=== PATIENT | female | born 1940 | race Caucasian/White ===

== ENCOUNTER 2023-09-06 10:53 | Observation (INO) ==
--- NOTE | 2023-07-24 09:10 | PAT Medication Instructions ---
Medication Instructions Date of Service July 24, 2023 Home Medications amlodipine 5 mg-benazepril 20 mg capsule 1 cap PO QAM atorvastatin 20 mg tablet 20 mg PO HS ergocalciferol (vitamin D2) 1,250 mcg (50,000 unit) capsule 1,250 mcg PO MONTHLY metoprolol tartrate 50 mg tablet 50 mg PO BID multivitamin (Daily Multi-Vitamin tablet) 2 tab PO QPM oxybutynin chloride 5 mg tablet 5 mg PO TID polyethylene glycol 3350 17 gram/dose oral powder (Miralax) 17 g PO QAM propylene glycol 0.6 % eye drops (Systane Complete) 1 drp ophthalmic (eye) DAILY PRN Dry Eye(S) sennosides 8.6 mg capsule (senna) 8.6 mg PO QPM glucosamine sulf dipot chlr,msm,chond 550 mg-C 30 mg-monique 1 mg capsule (Glucosamine Chondroitin) 1 cap PO BID Continue as directed ergocalciferol (vitamin D2) 1,250 mcg (50,000 unit) capsule 1,250 mcg PO MONTHLY (just do not take on morning of surgery) STOP taking 2 weeks before surgery glucosamine sulf dipot chlr,msm,chond 550 mg-C 30 mg-monique 1 mg capsule (Glucosamine Chondroitin) 1 cap PO BID DO NOT take the morning of surgery amlodipine 5 mg-benazepril 20 mg capsule 1 cap PO QAM oxybutynin chloride 5 mg tablet 5 mg PO TID polyethylene glycol 3350 17 gram/dose oral powder (Miralax) 17 g PO QAM Take morning of surgery With a small sip of water, OTHERWISE NOTHING TO EAT OR DRINK AFTER MIDNIGHT: metoprolol tartrate 50 mg tablet 50 mg PO BID propylene glycol 0.6 % eye drops (Systane Complete) 1 drp ophthalmic (eye) DAILY PRN Dry Eye(S) (if needed) Take evening before surgery atorvastatin 20 mg tablet 20 mg PO HS metoprolol tartrate 50 mg tablet 50 mg PO BID multivitamin (Daily Multi-Vitamin tablet) 2 tab PO QPM oxybutynin chloride 5 mg tablet 5 mg PO TID propylene glycol 0.6 % eye drops (Systane Complete) 1 drp ophthalmic (eye) DAILY PRN Dry Eye(S) (if needed) sennosides 8.6 mg capsule (senna) 8.6 mg PO QPM Other Notes If you have any questions please call us at [phone] or [phone] or [phone] or [phone]
--- NOTE | 2023-07-26 09:54 | Anesthesiology Consultation ---
Date of Service July 26, 2023 Assessment & Plan (1) Encounter for pre-operative examination: EKG 08/01/2023 = NSR at 61 bpm. (Reviewed by PCP at office visit "Repeat EKG in office on 08/01/23 showed normal sinus rhythm. No change since last EKG 2011.) Patient seen by PCP 08/02/2023 = seen for preop for right total knee replacement. Revised cardiac index score of no risk factors0.4% (95% CL: 0.10.8). Repeat EKG done in office. Cleared for surgery. Patient is low medical risk for listed procedure Patient acceptable risk for surgery. Chart Review Chart Review: Acceptable Risk for Surgery (pending PCP response ) and Patient seen in Pre Admission Testing - Discussed preop EKG with Dr. Winkler- recommends PCP evaluation- please send optimization note to PCP along with preop testing (specifically EKG)- awaiting response - Due to age- patient is NOT an OPJ candidate (currently 23 hour obs) Per PAT appt on 07/26/23, no recent illness/disease exposures, illness related symptoms, or recent illness/disease positive tests. Will leave to surgeon's discretion if preop Covid testing needed Teaching & Discussion Pre-Anesthesia Teaching/Discussion Notes: Instructed NPO after midnight before surgery,except medications with 15 cc of water. Medication instructions provided according to the PAT guidelines. History Surgery Operation Date: 09/06/23 12:30 Proposed Procedures p Right Total Knee Arthroplasty - Barrera Barnett MD Height/Weight Height: 5 ft 2 in Weight: 80 kg Allergies Allergy/AdvReac Type Severity Reaction Status Date / Time amoxicillin Allergy Intermediate Rash Verified 07/23/23 14:05 aspirin AdvReac Intermediate Gastrointestinal Verified 07/23/23 14:05 Upset Medications Home Medications Medication Instructions Recorded Confirmed Last Taken amlodipine 5 mg-benazepril 20 mg 1 cap PO QAM 06/25/23 07/23/23 Unknown capsule atorvastatin 20 mg tablet 20 mg PO HS 06/25/23 07/23/23 Unknown ergocalciferol (vitamin D2) 1,250 1,250 mcg PO MONTHLY 06/25/23 07/23/23 Unknown mcg (50,000 unit) capsule metoprolol tartrate 50 mg tablet 50 mg PO BID 06/25/23 07/23/23 Unknown multivitamin (Daily Multi-Vitamin 2 tab PO QPM 06/25/23 07/23/23 Unknown tablet) oxybutynin chloride 5 mg tablet 5 mg PO TID 06/25/23 07/23/23 Unknown polyethylene glycol 3350 17 17 g PO QAM 06/25/23 07/23/23 Unknown gram/dose oral powder (Miralax) propylene glycol 0.6 % eye drops 1 drp ophthalmic (eye) DAILY PRN 06/25/23 07/23/23 Unknown (Systane Complete) Dry Eye(S) sennosides 8.6 mg capsule (senna) 8.6 mg PO QPM 06/25/23 07/23/23 Unknown glucosamine sulf dipot 1 cap PO BID 07/23/23 07/23/23 Unknown chlr,msm,chond 550 mg-C 30 mg-monique 1 mg capsule (Glucosamine Chondroitin) Past Medical History Medical History Osteoporosis On Vitamin D Urinary incontinence mild- due to dropped bladder- occ urinary leaking Osteoarthritis Constipation Hyperlipidemia Hypertension Exercise / Class Metabolic Activity II 4-5 Yardwork/Stairs/Walk up hill (no chest pain or SOB with one flight of stairs ) Past Family History Family History Other No family history of adverse response to anesthesia Past Surgical History Surgical History History of repair of rotator cuff right rcr x2 History of colonoscopy Past Anesthesia History No Hx of Anesthesia Complications and No Family Hx of Anesthesia Complications History of PONV No Hx of PONV and No Hx of Motion Sickness Social History Smoking Status: Never smoker Do You Dip or Chew Tobacco: No Hx Alcohol Use: No Hx Substance Use: No substance use type: does not use Review of Systems Patient denies chest pain, shortness of breath, dyspnea on exertion, reflux, cough, wheezing, palpitations. No hx of seizures, stroke, CO, apnea/snoring. No hx of blood clots or blood transfusions Physical Exam Vital Signs VITALS BP 160/72 (manually- patient will recheck at home and call PAT/PCP if still elevated) P 58 TEMP 98.1 SP02 97% RESP 16 Constitutional no acute distress ENMT Mouth: no TMJ clicking Thyromental Distance: < 3.5 Finger Breadths (3.0) Mallampati Class: III Missing side teeth and molars Neck + limited neck extension Respiratory normal respiratory effort; no respiratory distress Auscultation: lungs clear to auscultation bilaterally; no wheezes Cardiovascular Rate/Rhythm: regular rate and regular rhythm Heart Sounds: no murmur Vessels: no carotid bruit Musculoskeletal Spine: no pain with cervical ROM Extremities: extremities normal to inspection Psychiatric Orientation: alert Lab Results Anesthesia Preop Results Results Anesthesia Widget: WBC 8.43 K/ul (4.8-10.8) 07/26/23 Hgb 13.0 g/dl (12.0-16.0) 07/26/23 Hct 36.5 % (37.0-47.0) L 07/26/23 Plt 198 K/uL (130-400) 07/26/23 Na 139 mmol/L (136-145) 07/26/23 K 4.0 mmol/L (3.5-5.1) 07/26/23 Cl 106 mmol/L (98-107) 07/26/23 CO2 28 mmol/L (21-32) 07/26/23 BUN 15 mg/dl (6-23) 07/26/23 Creat 0.69 mg/dl (0.6-1.2) 07/26/23 Glucose Level 98 mg/dl (70-99(Fasting)) 07/26/23 PT 11.2 Seconds (9.0-12.0) 07/26/23 PTT 28 Seconds (21-31) 07/26/23 INR 1.0 (0.9-1.1) 07/26/23 Blood Type O Positive 07/26/23 Antibody Screen NEGATIVE 07/26/23 Testing Electrocardiogram Date: 07/26/23 Findings: + NSR @ (60bpm ) Possible old anteroseptal infarct Chest X-Ray Date: 07/26/23 FINDINGS: Cardiac silhouette is enlarged. Atherosclerosis of the aorta. No pneumothorax, pleural effusion or airspace consolidation. Degenerative changes of the shoulders and spine. IMPRESSION: Cardiomegaly without acute process.
--- NOTE | 2023-09-02 13:12 | History & Physical Report ---
Date of Service September 02, 2023 Assessment & Plan (1) Right knee DJD: 83-year-old female with advanced right knee DJD. She has failed conservative measures. She like to have her right knee replaced. Plan: We will take her to the operative right knee replacement. The risks Mente this procedure plan patient include but not limited to DVT PE infection neurological and vascular bleeding palm pain limb range of motion this is fairly with symptoms incomplete release of symptoms excetra. The patient understands and desires to proceed. Informed consent was obtained. Will plan on DVT prophylaxis including thigh-high teds, SCDs, aspirin twice a day. She plan to be discharged home using [facility]. History of Present Illness Chief Complaint: . Persistent, progressive right knee pain and discomfort. Primary Care Provider: Yin Morales PA-C . Patient is an 83-year-old female who presents specifically for surgical daniel tment of her right right knee. She got about 10-year history of increasing right knee pain discomfort describes gotten worse over time. She been through extensive conservative measures treated at [facility] with injections as well as oral medicines. This become less successful over time. Describes global pain. The more she is up a lot more it hurts. She limps more as the day goes on. She can get to the grocery store and that is about it before she is all plate out. She like to have her right knee replaced. Allergies Allergy/AdvReac Type Severity Reaction Status Date / Time amoxicillin Allergy Intermediate Rash Verified 07/23/23 14:05 aspirin AdvReac Intermediate Gastrointestinal Verified 07/23/23 14:05 Upset Home Medications Medication Instructions Recorded Confirmed Type amlodipine 5 mg-benazepril 20 mg 1 cap PO QAM 06/25/23 07/23/23 History capsule atorvastatin 20 mg tablet 20 mg PO HS 06/25/23 07/23/23 History ergocalciferol (vitamin D2) 1,250 1,250 mcg PO MONTHLY 06/25/23 07/23/23 History mcg (50,000 unit) capsule metoprolol tartrate 50 mg tablet 50 mg PO BID 06/25/23 07/23/23 History multivitamin (Daily Multi-Vitamin 2 tab PO QPM 06/25/23 07/23/23 History tablet) oxybutynin chloride 5 mg tablet 5 mg PO TID 06/25/23 07/23/23 History polyethylene glycol 3350 17 17 g PO QAM 06/25/23 07/23/23 History gram/dose oral powder (Miralax) propylene glycol 0.6 % eye drops 1 drp ophthalmic (eye) DAILY PRN 06/25/23 07/23/23 History (Systane Complete) Dry Eye(S) sennosides 8.6 mg capsule (senna) 8.6 mg PO QPM 06/25/23 07/23/23 History glucosamine sulf dipot 1 cap PO BID 07/23/23 07/23/23 History chlr,msm,chond 550 mg-C 30 mg-monique 1 mg capsule (Glucosamine Chondroitin) Past Med/Surg History Medical History Osteoporosis On Vitamin D Urinary incontinence mild- due to dropped bladder- occ urinary leaking Osteoarthritis Constipation Hyperlipidemia Hypertension Surgical History History of repair of rotator cuff right rcr x2 History of colonoscopy Family History Other No family history of adverse response to anesthesia Social History Smoking Status: Never smoker Second Hand Exposure: No; Do You Dip or Chew Tobacco: No; Tobacco Cessation Education Requested by Patient: No Hx Alcohol Use: No Hx Substance Use: No Preferred Language: Cymro Communication Ability: Effective Traffic Engineering Director Required: No Beliefs That Will Affect Care: None Current Living Situation: Spouse Other Information That Helps Us Care for You: No Feels Safe at Home: Yes Safety Concerns: Feels Safe At This Time Assistive Devices: Glasses Review of Systems All systems reviewed & are unremarkable except as noted in HPI & below. Physical Exam . Physical examination was a pleasant middle-age female but looks in pretty good health. Examination of the right knee reveals patient ambulates independently. Good varus alignment to her knee. She is tender with medial joint line. Range of motion 5-1 15. No pain with hip motion. Negative straight leg raise. She is neurologically intact. Constitutional WD/WN, vitals as above Neck trachea midline, no thyromegaly Respiratory normal respiratory effort, lungs clear to auscultation Cardiovascular RRR, no murmur, no edema Gastrointestinal (Abdomen) normal bowel sounds, soft, nontender, no hepatosplenomegaly Results & Data Results & Data Laboratory Results . Diagnostic Findings . X-rays of the right knee reviewed. Shows advanced right knee DJD. She is got extensive tricompartment disease most severe in the medial side. She has subchondral sclerosis. She has similar but less severe disease in the left knee. PG Care Time/CCT Total # of Minutes Spent Total Time Spent with Patient: Total time spent is greater than 50% in coordination of care (as documented) at patient's floor/unit and/or counseling patient: Coding Level of Care Code None Diagnoses Right knee DJD M17.11
[~2023-09-06 10:53] MED LIST: ACETAMINOPHEN 500 MG TAB PO SCH; BUPIVACAINE 0.25% PF 30 ML VIAL ONE; BUPIVACAINE 0.5 % 5 MG/1 ML PF 10ML VIAL ONE; CeleBREX 200 MG CAP PO SCH; FAMOTIDINE 20 MG TAB PO SCH; LR 500ML BOLUS, THEN 15ML/HR IV SCH; LR 60ML/HR IV SCH; METOCLOPRAMIDE HCL 10 MG TABLET PO SCH; ROPIV 0.5% 246mg, Ketorolac 30mg, EPINEPHrine 0.5mg in NSS INFIL SCH; TRANEXAMIC ACID 1,000 MG **IV Intra-op IV SCH; dexAMETHasone**PF** 10 MG/ML VIAL IV SCH
[2023-09-06] MEDS ORDERED: PROPOFOL IV EMULSION 10 MG/ML 20 ML VIAL IV ONE ×3 (11:15→14:10)
[2023-09-06] MEDS ORDERED: ONDANSETRON INJ 2 MG/ML 2 ML VIAL ONE (11:15)
[2023-09-06] MEDS ORDERED: MIDAZOLAM HCL 1 MG/ML 2ML VIAL ONE (11:15)
[2023-09-06] MEDS ORDERED: ceFAZolin 2,000 MG/15 ML IV PUSH IV ONE (12:28)
[2023-09-06] MEDS ORDERED: Nursing to Pharmacy Communication SCH (12:30)
--- NOTE | 2023-09-06 12:31 | History & Physical Bridge Note ---
Date of Service September 06, 2023 History & Physical Bridge Note I have examined the patient, reviewed the History & Physical and in the interval since the performance of the History & Physical I have noted the following changes of clinical significance: no changes noted
[2023-09-06] MEDS ORDERED: ORTHO JOINT ANESTHETIC ONE (12:34)
[2023-09-06] MEDS ORDERED: ceFAZolin 2000MG 2,000 MG/15 ML SYR IV SCH (12:45)
[2023-09-06] MEDS ORDERED: fentaNYL citrate PF 100 MCG/2 ML VIAL ONE (13:21)
[2023-09-06] MEDS ORDERED: GLYCOPYRROLATE 0.2 MG/ML VIAL ONE (13:29)
--- NOTE | 2023-09-06 14:46 | Operative Report ---
PG Post Operative Report Pre & Post Diagnosis Operation Date: 09/06/23 12:30 Pre-Op Diagnosis: Right Knee Degenerative Joint Disease Post-Op Diagnosis: Right Knee Degenerative Joint Disease I identified the patient and participated in the time-out.: Yes Procedure Operation Date: 09/06/23 12:30 Actual Procedures p Right Total Knee Arthroplasty(Right) - Barrera Barnett MD Surgeon Barrera Barnett MD Metal Organ Pipe Maker Camilo Warren PA-C Estimated Blood Loss 50 Findings Consistent with Post-Op Diagnosis Operative findings were advanced right knee DJD. She had extensive grade 4 [id number] disease in all 3 compartments most severe medially. Osteophytes in all 3 compartments. Moderate-sized joint effusion. Specimens Right knee sent for pathology. Anesthesia Type Spinal MAC Complications none Disposition Accompanied Patient To Recovery: No Indications Patient is an 83-year-old female is had a several day history of increasing bilateral knee pain discomfort right side greater than left. She has been through extensive extensive conservative care which became less successful over time. X-rays show advanced right knee arthritis. She elected proceed with total knee arthroplasty. Description of Procedure Operative implants consist of: 1 Biomet Vanguard size 65 right posterior stabilized femoral component. 2. Biomet size 63 tibial tray. 3. 10 mm post stabilized polyethylene insert. 4. 31 x 8 all poly patella. The patient was taken the operating, identified, placed on the operating table in the supine position but all contact areas were appropriately padded. IV antibiotics 5 by anesthesia team. Spinal anesthetic and abductor canal block had been provided in the holding area. A Merlos catheter was placed in sterile fashion. Right thigh tent was then placed in the right lower extremities then prepped and draped in usual sterile fashion. Right leg was elevated exsanguinated with use of an Esmarch and a turn was placed at 300 mmHg. An anterior approach to the right knee was then performed to longitudinal incision centered over the patella. Sharp dissection was carried through subcutaneous tissue down the extensor mechanism. A medial patellar patellar arthrotomy was then performed. Subperiosteal dissection was carried out medially. The fat pad was dissected from Neath patella tendon. Lateral patellofemoral ligament was released. Patella subluxated laterally and the knee was flexed. The osteophytes taken off distal femur. The ACL and PCL were then released and the distal femur and the tibia subluxated anteriorly. The external tibial alignment jig was then placed the interface the tibia and adjusted 14 mm medially. Proximal tibial cut was made removed millimeters lower 2 from the medial side. Some osteophytes taken off medially. The tibia sized to a size 63. Attention drawn the femur. The distal femur stem with a sharp drill. The intramedullary canal was suction. A right 5 degree valgus cutting guide was placed. This femoral cutting block was then placed. This femoral cut was made take an additional 3 mm of bone off distal femur. The femur was then sized to a size 65. The AP cutting block was pinned parallel to the epicondylar axis which was 3 degrees of external rotation. The anterior cut, anterior chamfer, posterior cut, posterior chamfer cuts were made. The box cutting guide was placed in a just slight lateral box cut was made. The knee was flexed. The remnants of the medial and lateral menisci were excised. The osteophytes taken off the posterior aspect the femur. Trial femoral component was placed. The tibial tray was pinned Janice external rotation and the drill and stem punch used to create defect in proximal tibia for the tibial tray. Knee was then trialed and the 10 mm insert fit most appropriately. Attention drawn the patella. The patella was cleaned of all soft tissue. Patella thickness measured 20 mm in thickness was cut down to 13. Was sized to a size 31 patella. The lug holes were drilled for 31 patella. The lateral osteophytes removed. Patella button was placed. Knee was taken through range of motion patella tracked nicely with no thumbs test. Attention drawn to place the permanent components. Nupathe all trial components removed. Bone plug was placed into this femur limit blood loss. Double batch Palacos G cement was mixed. Biomet Vanguard size 65 right Po stabilized femoral component, size 63 tibial tray, a 10 mm pro stabilized polyethylene insert, 31 x 8 all poly patella then cemented in place. Knee was brought out into full extension till cement hardened. Final cement check was then performed. The pericapsular tissues were injected with total 100 cc of combination 50 cc of ropivacaine with epinephrine, 30 mg of Toradol, and 50 cc of normal saline. The tourniquet was then let down for final tourniquet time 51 minutes PE. Hemostasis assured with electrocautery. Extensor Meclomen closed with combination 1 PDS suture #1 Vicryl suture in [id number] fashion. Extensor Meclomen checked to be intact. Subcutaneous tissues then closed with 2 Dexon suture in buried interrupted fashion skin was closed skin fartun. Leg was then cleaned and dried and a sterile dressing with Xeroform, 4 fours, sterile cast padding, Mannie bandage were applied. Patient then transferred to the recovery in stable condition. Patient tolerated procedure well and there were no complications. Camilo Warren, my physician personalized living assistant, was present for the entire procedure. His assistance was essential and required for appropriate patient positioning, prepping and draping, surgical exposure, performing the technical details of the operation, placement the implants, closure of the wound, and placement of the sterile bandage. I attest to the content of the Intraoperative Record and any orders documented therein. Any exceptions are noted below.
--- NOTE | 2023-09-06 15:02 | XRay Report ---
XR knee RT 1 or 2V routine CLINICAL HISTORY: Surgical Post Op TECHNIQUE: 2 views of the right knee were obtained. Comparison: Comparison is made to knee radiographs 09/26/2022 FINDINGS: Patient is status post total knee arthroplasty with expected postsurgical changes including soft tiss ue swelling and subcutaneous emphysema. No periarticular lucency or hardware fracture is seen. IMPRESSION: Expected postoperative appearance status post placement of total knee arthroplasty. ACT 112: Negative or not required by law. Electronically signed by: Suresh Pleitez M.D. 09/06/2023 3:01 PM
--- NOTE | 2023-09-06 15:32 | Anesthesiology Progress Note ---
Date of Service September 06, 2023 Anesthesia Post Procedure Vital Signs Vital Signs: Temp Pulse Pulse Resp BP BP Pulse Ox 09/06/23 15:15 78 18 159/62 H 94 09/06/23 15:05 85 12 172/73 H 94 09/06/23 14:55 85 16 164/64 H 95 09/06/23 14:46 36.5 C 87 21 147/61 H 96 09/06/23 12:14 67 18 216/101 H 97 09/06/23 11:49 70 18 247/96 H 96 09/06/23 11:30 36.9 C 72 18 225/114 H 98 O2 Del Method 09/06/23 15:15 Room Air 09/06/23 15:05 Room Air 09/06/23 14:55 Room Air 09/06/23 14:46 Room Air 09/06/23 12:14 Room Air 09/06/23 11:49 Room Air 09/06/23 11:30 Room Air Transfer of Care Handoff Completed per policy Notes Mental Status: alert / awake / arousable and participated in evaluation Nausea / Vomiting: adequately controlled Pain: adequately controlled Airway Patency, RR, SpO2: stable & adequate BP & HR: stable & adequate Hydration State: stable & adequate Neuraxial Anesthesia: was administered and sensory block is resolving Anesthetic Complications: no major complications apparent and Pt Satisfied with anesthetic care
--- OUTSIDE RECORDS SUMMARY | 2023-09-06 16:15 | External Medical Summary | Summary of Care ---
Author Name Unknown Organization [facility] [address] [facility] [address] Phone [phone] Care Team Providers Care Digital Media Coordinator Name Role Phone Yin Morales PA-C Primary Care Provider Reason for Visit * Reason Onset Date Comments Precert In Process 06/01/2023 Prolia applyi vahe for assistance Encounter Details Date Type Department Care Team (Late st Contact Info) Description 06/01/2023 Telephone Rheumatology [facility] [address] [place], [place] [address] [place] [address] Pedro Garnica MD [address] [place], [place] [address] [address] Precert In Process (Prolia applying for as... Allergies Active Allergy Reactions Criticality Noted Date Comments Amoxicillin 01/13/2005 Rash Salicylates 07/29/2010 Stomach upset Ciprofloxacin Other (Please comment) 05/14/2017 Dizziness Metronidazole Other (Please comment) 05/14/2017 Dizziness documented as of this encounter (statuses as of 09/05/2023) Medications Medication Sig Dispensed Refills Start Date End Date Status CENTRUM SILVER PO TABS one daily 0 Active GLUCOSAMINE 500 MG PO TABS one daily 0 Active Propylene Glycol 0.6 % Ophthalmic Solution Instill 2 Drops into eye. 0 Active Metoprolol Tartrate 50 MG Oral Tablet (Lopressor)Indicat ions:Essential hypertension with goal blood pressure less than 140/90 TAKE 1 TABLET BY MOUTH TWICE DAILY 180 Tablet 3 11/28/2022 Active Polyethylene Glycol 3350 17 GM/SCOOP Oral Powder (MiraLax) Take 17 g by mouth in the morning. 0 Active Senna 8.6 MG Oral Capsule Take by mouth. 0 Active Vitamin D (Ergocalciferol) 1.25 MG (48795 UT) Oral Capsule (Drisdol)Indicatio ns:Vitamin D deficiency TAKE ONE CAPSULE BY MOUTH EVERY 4 WEEKS 3 Capsule 3 05/02/2023 Active Atorvastatin Calcium 20 MG Oral Tablet (Lipitor)Indicatio ns:Dyslipidemia Take 1 Tablet by mouth every night at bedtime. 90 Tablet 1 05/08/2023 Active amLODIPine Besy-Benazepril HCl 5-20 MG Oral Capsule (Lotrel)Indication s:Essential hypertension with goal blood pressure less than 140/90 TAKE ONE CAPSULE BY MOUTH ONCE DAILY 90 Capsule 3 06/04/2022 3 Discontinued Oxybutynin Chloride 5 MG Oral Tablet (Ditropan)Indicati ons:Urge incontinence TAKE 1 TABLET BY MOUTH 3 TIMES DAILY (MORNING, NOON AND BEDTIME) 270 Tablet 2 10/09/2022 3 Discontinued documented as of this encounter (statuses as of 09/05/2023) Active Problems Problem Noted Date Diagnosed Date Primary osteoarthritis of right knee 03/29/2023 Cyst of left ovary 03/29/2023 Age-related osteoporosis wit hout current pathological fracture 11/28/2022 Ulcerative colitis without complications 018 Essential hypertension with goal blood pressure less than 140/90 03/20/2016 Dyslipidemia, goal LDL below 130 03/20/2016 Vitamin D deficiency 10/31/2010 Urge incontinence 03/04/2007 ADVANCE DIRECTIVE INFORMATION 08/16/2005 Overview: received a booklet at a prior appt. documented as of this encounter (statuses as of 09/05/2023) Resolved Problems Problem Noted Date Diagnosed Date Resolved Date Ovarian cyst 02/16/2009 03/26/2017 HTN, goal below 140/90 08/16/200503/20 Osteoporosis 05/17/2005 09/23/2019 Menopause 01/13/2005 08/30/2018 Overview: age 53 Dyslipidemia, goal to be determined 01/13/2005 03/20/2016 NO KNOWN PROBLEMS 05/14/2002 01/13/2005 documented as of this encounter (statuses as of 09/05/2023) Immunizations Name Administration Dates Next Due COVID-19 mRNA, LNP-s, No Pre serve, 2-Dose Series (Moderna) 11/15/2020,10/15/2020 COVID-19, mRNA, LNP-s, PF, B ooster, 100mcg/0.5mg (Moderna) 10/31/2021 Covid-19, Mrna, Lnp-s, Pf, B ivalent, 30 Mcg, IM, 12 yrs and above (Pfizer) 06/09/2022 PPD 05/03/1998 Pneumococcal Conjugate Vacc, 13 Valent (Prevnar) 03/20/2016 Pneumococcal Polysaccharide PPV23 (Pneumovax) 02/19/2006 Season Influenza, Quad, PF, Adjuvanted, 65+ Yrs, IM (FLUAD) 06/03/2020 Seasonal Influenza, PF, 6 M & above, IM , (FluLaval or Fluzone) 06/27/2018,05/14/2017 Seasonal Influenza, Quadriva lent Hd (Fluzone Hd) 04/23/2023,05/23/2022,05/31/2021 Seasonal Influenza, Quadriva lent, No Preserve, IM 05/23/2016,05/29/2015 Seasonal Influenza, Split, I IV3, With Preserve, Inj 05/16/2014,04/26/2013,05/01/2012,05/03,05/03/2010,04/22/2010,06/15/2008 ,05/24/2007,05/21/2006 Seasonal Influenza, Trivalen t, Adjuvanted, 65+ yrs 04/30/2019 TD - Tetanus/Diptheria (ADULT) 03/09/2008 TDAP (age 11 and older)(Adacel) 02/25/2018 Varicella Zoster Vaccine (Adult) 03/09/2010 Zoster Vaccine Recombinant (Shingrix) 01/16/2020 ,10/01/2019 documented as of this encounter Social History Tobacco Use Types Packs/Day Years Used Date Smoking Tobacco: Never Smokeless Tobacco: Never Alcohol Use Standard Drinks/Week Comments Yes 0 (1 standard drink = 0.6 oz pur e alcohol) occasionally PHQ-2 Answer Date Recorded PHQ Adult Total Score 0 09/24/2020 Hunger Vital Sign Answer Date Recorded Worried About Running Out of Food in the Last Ye ar Never true 02/26/2019 Ran Out of Food in the Last Year Never true 02/26/2019 Sex and Gender Information Value Date Recorded Sex Assigned at Female 02/26/2019 1:46 PM EDT Gender Identity Female 02/26/2019 1:46 PM EDT Sexual Orientation Straight 02/26/2019 1: 46 PM EDT Job Start Date Occupation Industry Not on file Not on file Not on file documented as of this encounter Miscellaneous Notes * Telephone Encounter - Yolis Sidhu OSA - 09/05/2023 4:08 PM EST Yes, she has been approved until 01/18/2024 * Telephone Encounter - Mary Aparicio LPN - 09/05/2023 3:41 PM EST Pt is calling to schedule, has she been approved for FA? * Telephone Encounter - Da Cho LPN - 08/30/2023 11:33 AM EST Left message on pt daughters phone to have pt call regarding Prolia FA * Telephone Encounter - Da Cho LPN - 08/09/2023 12:58 PM EST Message left on pt phone requesting info on FA for Prolia * Telephone Encounter - Mary Aparicio LPN - 07/09/2023 2:25 PM EST Has pt been approved for FA? * Telephone Encounter - Nancy Aparicio LPN - 06/08/2023 1:15 PM EDT Drug name: PROLIA [facility] code(s): J0897 AUTH #: [id number] Valid auth start date: 06/05/2023 Valid auth end date: 08/12/2099 Location: [facility] # of Visits: 99 Billing Units Approved: LIFETIME Diagnosis Code(s): M81.0 Contacted patient: YES, APPLYING FOR FINANCIAL ASSISTANCE * Telephone Encounter - Lily Alejandre OSA - 06/05/2023 3:59 PM EDT Prior Auth (EOC) ID: [id number] Drug/Service Name: PROLIA 60 MG/ML SYRINGE Patient: CAPRI HERRERA Date Requested: 06/05/2023 3:54:27 PM MemberID: [id number] : 1940 submitted authorization request please see referral entry communications for all future updates * Telephone Encounter - Mary Aparicio LPN - 06/04/2023 3:01 PM EDT Please auth, thanks * Telephone Encounter - Pedro Garnica MD - 06/01/2023 11:54 AM EDT Can be look into coverage for Prolia for osteoporosis. She had been intolerant to Fosamax. Labs aregood for Prolia documented in this encounter Plan of Treatment Upcoming Encounters Date Type Department Care Team ([place] [facility] Contact Info) Description 10/10/2023 4:00 PM EST Office Visit [address] [place] [phone] Moustapha Stevens PA-C [address] [place] [address] 11/26/2023 2:00 PM EDT Office Visit [facility] [address] [place] [address] Yin Morales PA-C [address] [place] [address] 12/14/2023 11:45 AM EDT Appointment OR [facility], Operating Room, [facility] 1st Floor [address] [place] [address] Magda Claudio, DO [address] [place] [address] 12/17/2023 3:00 PM EDT Office Visit Rheumatology [place] [phone] [place] [address] Morgan Gresham CRNP [address] [place] [address] Scheduled Procedures Name Priority Associated Diagnoses Date/Ti me COLONOSCOPY FLEXIBLE PROXIMAL DIAGNOSTIC Recall Colon cancer screening Health Maintenance Due Date Last Done Comments Albumin/Creatinine Ratio 1959 Depression Screening 09/24/2021 09/24/2020 COLONOSCOPY-EVERY 5 YRS AGES 18-100 07/03/2022 07/03/2017, 07/03/2017, 12/31/2006 COVID-19 Vaccine (2022- season) 2023 06/09/2022, 10/31/2021, 11/15/2020, Additional history exists DXA Scan 01/21/2024 01/20/2022, 01/12, 03/13/2014, Additional history exists GFR 07/26/2024 07/26/2023, 03/13, 02/22/2023, Additional history exists DTaP,Tdap,and Td Vaccines (2 - Td or Tdap) 02/26/2028 02/25/2018, 03/09/2008 Pneumococcal Vaccine: 65+ Years Completed 03/20/2016, 02/19/2006 Zoster Vaccines Completed 01/16/2020, 09/13, 03/09/2010 VITAMIN D LEVEL ONCE IN A LIFETIME-USE SMARTSET# [id number] Completed 03/22/2023, 09/21/2021, 03/17/2021, Additional history exists Influenza Vaccine (FLU shot) Completed 06/2023, 05/23/2022, 05/31/2021, Additional history exists GARDASIL-HPV IMMUNIZATION SERIES Aged Out No longer eligible based on patient's age to complete this topic Hepatitis B Aged Out No longer eligi ble based on patient's age to complete this topic MENINGOCOCCAL (MENACTRA/MENVEO) Aged Out No longer eligible based on patient's age to complete this topic documented as of this encounter Medical Devices Not on filedocumented as of this encounter Care Teams Digital Media Coordinator Relationship Specialty Start Date End Date Yin Morales PA-C [address] [place], [place] [address] [address] PCP - General Physician Journal Box Inspector 07/11/22 documented as of this encounter
--- OUTSIDE RECORDS SUMMARY | 2023-09-06 16:15 | External Medical Summary | Summary of Care ---
Author Name Unknown Organization [facility] Address [address] [facility] [address] Phone [phone] Care Team Providers Care Track Production Engineer Name Role Phone Yin Morales PA-C Primary Care Provider Reason for Visit * Reason Onset Date Comments Precert In Process 06/01/2023 Prolia applyi vahe for assistance Encounter Details Date Type Department Care Team (Late st Contact Info) Description 06/01/2023 Telephone Rheumatology [facility] [address] [place], [place] [address] [place] [address] Pedro Garnica MD [address] [place], [place] [address] [address] Precert In Process (Prolia applying for [...] 0 Active Vitamin D (Ergocalciferol) 1.25 MG (96031 UT) Oral Capsule (Drisdol)Indicatio ns:Vitamin D deficiency [...] encounter Miscellaneous Notes * Telephone Encounter - Mary Aparicio LPN [...] 06/08/2023 1:15 PM EDT Drug name: PROLIA [facility] code(s): J0897 AUTH #: [id number] Valid auth start date: 06/05/2023 Valid auth end date: 08/12/2099 Location: [facility] # of Visits: 99 Billing Units Approved: LIFETIME Diagnosis Code(s): M81.0 Contacted patient: YES, APPLYING FOR FINANCIAL ASSISTANCE * Telephone Encounter - Lily Alejandre OSA - 06/05/2023 3:59 PM EDT Prior Auth ([facility]) ID: [id number] Drug/Service Name: PROLIA 60 MG/ML SYRINGE Patient: CAPRI HERRERA Date Requested: 06/05/2023 3:54:27 PM MemberID: [id number] : 1940 submitted authorization request please see [...] Upcoming Encounters Date Type Department Care Team ([facility] st Contact Info) Description 10/10/2023 4:00 PM EST Office Visit Dermatology [address] [phone] Moustapha Stevens PA-C [address] [place], [place] [address] [address] 11/26/2023 2:00 PM EDT Office Visit Family Practice [address] [phone] Yin Morales PA-C [address] [place] [address] 12/14/2023 11:45 AM EDT Appointment OR [facility], Operating Room, [facility] 1st Floor [address] [place] [address] Magda Claudio, 10 [place] [address] 12/17/2023 3:00 PM EDT Office Visit Rheumatology [facility] [address] [email or web address] [place] [address] Morgan Gresham CRNP [address] [employer] [place] [address] Scheduled Procedures Name Priority Associated Diagnoses Date/Ti [...] D LEVEL ONCE IN A LIFETIME-USE SMARTSET# [id number] Completed 03/22/2023, 09/21/2021, 03/17/2021, Additional history exists [...] filedocumented as of this encounter Care Teams Track Production Engineer Relationship Specialty Start Date End Date Yin Morales PA-C [address] [place] [phone] PCP - General Physician Adult Basic Education Manager 07/11/22 documented as of this encounter
--- OUTSIDE RECORDS SUMMARY | 2023-09-06 16:15 | External Medical Summary | Summary of Care ---
Author Name Unknown Organization [facility] Address [address] [facility] [address] Phone [phone] Care Team Providers Care Clinical Dietetic Technician Name Role Phone Yin Morales PA-C Primary Care Provider Reason for Visit * Reason Onset Date Comments Precert In Process 06/01/2023 Prolia applyi vahe for assistance Encounter Details Date Type Department Care Team (Late st Contact Info) Description 06/01/2023 Telephone Rheumatology [facility] [address] [place], [place] [address] [place] [address] Pedro Garnica MD [address] [place], [place] [address] [address] Precert In Process (Prolia applying for as... Allergies Active Allergy Reactions Criticality Noted Date Comments Amoxicillin 01/13/2005 Rash Salicylates 07/29/2010 Stomach upset Ciprofloxacin Other (Please comment) 05/14/2017 Dizziness Metronidazole Other (Please comment) 05/14/2017 Dizziness documented as of this encounter (statuses as of 08/31/2023) Medications Medication Sig Dispensed Refills Start Date [...] 0 Active Vitamin D (Ergocalciferol) 1.25 MG (64529 UT) Oral Capsule (Drisdol)Indicatio ns:Vitamin D deficiency [...] as of this encounter (statuses as of 08/31/2023) Active Problems Problem Noted Date Diagnosed Date [...] as of this encounter (statuses as of 08/31/2023) Resolved Problems Problem Noted Date Diagnosed Date Resolved Date Ovarian cyst 02/16/2009 03/26/2017 HTN, goal below 140/90 08/16/200503/20 Osteoporosis 05/17/2005 09/23/2019 Menopause 01/13/2005 08/30/2018 Overview: age 53 Dyslipidemia, goal to be determined 01/13/2005 03/20/2016 NO KNOWN PROBLEMS 05/14/2002 01/13/2005 documented as of this encounter (statuses as of 08/31/2023) Immunizations Name Administration Dates Next Due COVID-19 mRNA, LNP-s, No Pre serve, 2-Dose Series (Moderna) 11/15/2020,10/15/2020 COVID-19, mRNA, LNP-s, PF, B ooster, 100mcg/0.5mg (Moderna) 10/31/2021 Covid-19, Mrna, Lnp-s, Pf, B ivalent, 30 Mcg, IM, 12 yrs and above (Pfizer) 06/09/2022 Pneumococcal Conjugate Vacc, 13 Valent (Prevnar) 03/20/2016 [...] encounter Miscellaneous Notes * Telephone Encounter - Da Cho LPN [...] name: PROLIA HCPCS code(s): J0897 AUTH #: [id number] Valid auth start date: 06/05/2023 Valid auth end date: 08/12/2099 Location: [facility] # of Visits: 99 Billing Units Approved: LIFETIME Diagnosis Code(s): M81.0 Contacted patient: YES, APPLYING FOR FINANCIAL ASSISTANCE * Telephone Encounter - Lily Alejandre OSA - 06/05/2023 3:59 PM EDT Prior Auth (EOC) ID: [id number] Drug/Service Name: PROLIA 60 MG/ML SYRINGE Patient: CAPRI HERRERA Date Requested: 06/05/2023 3:54:27 PM MemberID: [id number] : 1940 submitted authorization request please see [...] Upcoming Encounters Date Type Department Care Team ([facility] Contact Info) Description 10/10/2023 4:00 PM EST Office Visit Dermatology [address] [phone] Moustapha Stevens PA-C [address] [place] [address] 11/26/2023 2:00 PM EDT Office Visit Family Practice [address] [phone] Yin Morales PA-C [address] [place] [address] 12/17/2023 3:00 PM EDT Office Visit [address]umatology [address] [address] Morgan Gresham CRNP [address] [employer] [place] [address] Scheduled Procedures Name Priority Associated Diagnoses Date/Ti me COLONOSCOPY FLEXIBLE PROXIMAL DIAGNOSTIC Recall Colon cancer screening Health Maintenance Due Date Last Done Comments Albumin/Creatinine Ratio 1959 Depression Screening 09/24/2021 09/24/2020 COLONOSCOPY-EVERY 5 YRS AGES 18-100 07/03/2022 07/03/2017, 07/03/2017, 12/31/2006 COVID-19 Vaccine (2022- season) 2023 06/09/2022, 10/31/2021, 11/15/2020, Additional history exists DXA Scan 01/21/2024 01/20/2022, 01/12, 03/13/2014, Additional history exists GFR 03/22/2024 03/22/2023, 02/10, 05/16/2022, Additional history exists DTaP,Tdap,and Td Vaccines (2 - Td or Tdap) 02/26/2028 02/25/2018, 03/09/2008 Pneumococcal Vaccine: 65+ Years Completed 03/20/2016, 02/19/2006 Zoster Vaccines Completed 01/16/2020, 09/13, 03/09/2010 VITAMIN D LEVEL ONCE IN A LIFETIME-USE SMARTSET# [id number] Completed 03/22/2023, 09/21/2021, 03/17/2021, Additional history exists [...] filedocumented as of this encounter Care Teams Clinical Dietetic Technician Relationship Specialty Start Date End Date Yin Morales PA-C [address] [place], [place] [address] [address] PCP - General Physician Security And Privacy Consultant 07/11/22 documented as of this encounter
--- OUTSIDE RECORDS SUMMARY | 2023-09-06 16:15 | External Medical Summary | Summary of Care ---
Author Name Unknown Organization [facility] Address [address] [place] [address] Phone [phone] Care Team Providers Care Closing Specialist Name Role Phone Yin Morales PA-C Primary Care Provider Encounter Details Date Type Department Care Team ([facility] Contact Info) Description 09/04/2023 Orders Only Family [facility] [address] [place] [phone] Yin Morales PA-C [address] [place] [address] Allergies Active Allergy Reactions Criticality Noted Date Comments Amoxicillin 01/13/2005 Rash Salicylates 07/29/2010 Stomach upset Ciprofloxacin Other (Please comment) 05/14/2017 Dizziness Metronidazole Other (Please comment) 05/14/2017 Dizziness documented as of this encounter (statuses as of 09/04/2023) Medications Medication Sig Dispensed Refills Start Date End Date Status CENTRUM SILVER PO TABS one daily 0 Active GLUCOSAMINE 500 MG PO TABS one daily 0 Active Propylene Glycol 0.6 % Ophthalmic Solution Instill 2 Drops into eye. 0 Active Metoprolol Tartrate 50 MG Oral Tablet (Lopressor)Indication s:Essential hypertension with goal blood pressure less than 140/90 TAKE 1 TABLET BY MOUTH TWICE DAILY 180 Tablet 3 11/28/2022 Active Polyethylene Glycol 3350 17 GM/SCOOP Oral Powder (MiraLax) Take 17 g by mouth in the morning. 0 Active Senna 8.6 MG Oral Capsule Take by mouth. 0 Active Vitamin D (Ergocalciferol) 1.25 MG (77145 UT) Oral Capsule (Drisdol)Indications: Vitamin D deficiency TAKE ONE CAPSULE BY MOUTH EVERY 4 WEEKS 3 Capsule 3 05/02/2023 Active Atorvastatin Calcium 20 MG Oral Tablet (Lipitor)Indications: Dyslipidemia Take 1 Tablet by mouth every night at bedtime. 90 Tablet 1 05/08/2023 Active amLODIPine Besy-Benazepril HCl 5-20 MG Oral Capsule (Lotrel)Indications:E ssential hypertension with goal blood pressure less than 140/90 TAKE ONE CAPSULE BY MOUTH ONCE DAILY 90 Capsule 2 06/04/2023 Active oxyBUTYnin Chloride 5 MG Oral Tablet (Ditropan)Indications :Urge incontinence TAKE 1 TABLET BY MOUTH 3 TIMES DAILY (MORNING, NOON AND BEDTIME) 270 Tablet 2 07/16/2023 Active documented as of this encounter (statuses as of 09/04/2023) Active Problems Problem Noted Date Diagnosed Date [...] as of this encounter (statuses as of 09/04/2023) Resolved Problems Problem Noted Date Diagnosed Date Resolved Date Ovarian cyst 02/16/2009 03/26/2017 HTN, goal below 140/90 08/16/200503/20 Osteoporosis 05/17/2005 09/23/2019 Menopause 01/13/2005 08/30/2018 Overview: age 53 Dyslipidemia, goal to be determined 01/13/2005 03/20/2016 NO KNOWN PROBLEMS 05/14/2002 01/13/2005 documented as of this encounter (statuses as of 09/04/2023) Immunizations Name Administration Dates Next Due COVID-19 [...] on file documented as of this encounter Plan of Treatment Upcoming Encounters Date Type Department Care Team ([facility] Contact Info) Description 10/10/2023 4:00 PM EST Office Visit Dermatology [address] [phone] Moustapha Stevens PA-C [address] [place] [address] 11/26/2023 2:00 PM EDT Office Visit Family Practice [address] [phone] Yin Morales PA-C [address] [place] [address] 12/17/2023 3:00 PM EDT Office Visit Rheumatology [place] [address] [place] [address] Morgan Gresham CRNP [address] [facility] [place] [address] Scheduled Procedures Name Priority Associated Diagnoses Date/Ti me COLONOSCOPY FLEXIBLE PROXIMAL DIAGNOSTIC Recall Colon cancer screening Health Maintenance Due Date Last Done Comments Albumin/Creatinine Ratio 1959 Depression Screening 09/24/2021 09/24/2020 COLONOSCOPY-EVERY 5 YRS AGES 18-100 07/03/2022 07/03/2017, 07/03/2017, 12/31/2006 COVID-19 Vaccine ( season) 2023 06/09/2022, 10/31/2021, 11/15/2020, Additional history exists DXA Scan 01/21/2024 01/20/2022, 01/12, 03/13/2014, Additional history exists GFR 07/26/2024 07/26/2023, 03/13, 02/22/2023, Additional history exists DTaP,Tdap,and Td Vaccines (2 - Td or Tdap) 02/26/2028 02/25/2018, 03/09/2008 Pneumococcal Vaccine: 65+ Years Completed 03/20/2016, 02/19/2006 Zoster Vaccines Completed 01/16/2020, 09/13, 03/09/2010 VITAMIN D LEVEL ONCE IN A LIFETIME-USE SMARTSET# [id number] Completed 03/22/2023, 09/21/2021, 03/17/2021, Additional history exists [...] Not on filedocumented as of this encounter Procedures Procedure Name Priority Date/Time Associated Diagnosis Comments XR CHEST 2 VIEWS Routine 07/26/2023 CHEMISTRY-OUTSIDE Routine 07/26/2023 documented in this encounter Results * CHEMISTRY-OUTSIDE (07/26/2023) Not all results display below - see scan for full detail OUTSIDE LAB (SEE SCANNED REPORT) Comment:scan includes: cbcd- cmp-pt/inr CREATININE-OUTSID E LAB 0.69 0.6 - 1.2 mg/dl OUTSIDE LAB (SEE SCANNED REPORT) EGFR-OUTSIDE LAB 81.1 >=60ml/min OU TSIDE LAB (SEE SCANNED REPORT) POTASSIUM-OUTSIDE LAB 4.0 3.5 - 5.1 mmol/l OUTSIDE LAB (SEE SCANNED REPORT) GLUCOSE-OUTSIDE LAB 98 70 - 99 mg/dl OUTSIDE LAB (SEE SCANNED REPORT) HOURS FASTING OUTSID E LAB (SEE SCANNED REPORT) TRIGLYCERIDES-OUT SIDE LAB OUTSIDE LAB (SEE SCANNED REPORT) CHOLESTEROL-OUTSI DE LAB OUTSIDE LAB (SEE SCANNED REPORT) HDL-OUTSIDE LAB OUTS SHILPA LAB (SEE SCANNED REPORT) CHOL/HDL RATIO-OUTSIDE LAB OUTSIDE LA B (SEE SCANNED REPORT) LDL (CALCULATED)-OUTS SHILPA LAB OUTSIDE LAB (SEE SCANNED REPORT) LDL (DIRECT MEASURE)-OUTSIDE LAB OUTSIDE LAB (SEE SCANNED REPORT) HEMOGLOBIN, G7M-QEHHOAG LAB OUTSIDE LAB (SEE SCANNED REPORT) PHOSPHORUS-OUTSID E LAB OUTSIDE LAB (SEE SCANNED REPORT) PTH-OUTSIDE LAB OUTS SHILPA LAB (SEE SCANNED REPORT) MICROALBUMIN RATIO-OUTSIDE LAB OUTSIDE LA B (SEE SCANNED REPORT) PROTEIN, UA-OUTSIDE LAB OUTSIDE LAB (SEE SCANNED REPORT) HEMOGLOBIN-OUTSID E LAB 13 12 - 16 g/dl OUTSIDE LAB (SEE SCANNED REPORT) 07/26/2023 Yin Morales PA-C LABORATORY OUTSIDE LAB (SEE SCANNED REPORT) * XR CHEST 2 VIEWS (07/26/2023) Anatomical Region Laterality Modality Chest Other 07/26/2023 Yin Morales PA-C RADIOLOGY (RAD GENERAL) documented in this encounter Care Teams Closing Specialist Relationship Specialty Start Date End Date Yin Morales PA-C [address] [place] [address] PCP - General Physician Car Runner 07/11/22 documented as of this encounter
--- OUTSIDE RECORDS SUMMARY | 2023-09-06 16:15 | External Medical Summary | Summary of Care ---
Author Name Unknown Organization [facility] Address [address] [place] [address] Phone [phone] Care Team Providers Care Shale Planer Operator Helper Name Role Phone Yni Morales PA-C Primary Care Provider Encounter Details Date Type Department Care Team (Late st Contact Info) Description 07/26/2023 Result Scan Unspecified Department <No scans attached> Allergies Active Allergy Reactions Criticality Noted Date [...] 0 Active Vitamin D (Ergocalciferol) 1.25 MG (42255 UT) Oral Capsule (Drisdol)Indications: Vitamin D deficiency [...] Upcoming Encounters Date Type Department Care Team ([facility] st Contact Info) Description 10/10/2023 4:00 PM EST Office Visit Dermatology [facility] [address] [place] [phone] Moustapha Stevens PA-C [address] [place], [place] [phone] 11/26/2023 2:00 PM EDT Office Visit Family Practice [facility] [address] [place] [phone] Yin Morales PA-C [address] [place] [phone] 12/17/2023 3:00 PM EDT Office Visit Rheumatology [place] [address] [place] [address] Morgan Gresham CRNP [address] [email or web address] [address] Scheduled Procedures Name Priority Associated Diagnoses Date/Ti [...] D LEVEL ONCE IN A LIFETIME-USE SMARTSET# [id number] Completed 03/22/2023, 09/21/2021, 03/17/2021, Additional history exists [...] Procedure Name Priority Date/Time Associated Diagnosis Comments EKG SCANNED RESULT 07/26/2023 documented in this encounter Results * EKG SCANNED RESULT (07/26/2023) 07/26/2023 No Physician Data Unknown EKG documented in this encounter Care Teams Shale Planer Operator Helper Relationship Specialty Start Date End Date Yin Morales PA-C [address] [place] [address] PCP - General Physician Java Spring Developer 07/11/22 documented as of this encounter
--- OUTSIDE RECORDS SUMMARY | 2023-09-06 16:15 | External Medical Summary | Summary of Care ---
Author Name Unknown Organization [facility] Address [address] [place] [address] Phone [phone] Care Team Providers Care Photoengraver Apprentice Name Role Phone Yin Morales PA-C Primary Care Provider Reason for Visit * Reason Onset Date Comments Information 09/05/2023 Colon scheduled [facility] Encounter Details Date Type Department Care Team (Late st Contact Info) Description 09/05/2023 Telephone [facility] [address] [place] [address] Magda Claudio DO [address] [place], [place] [phone] Information (Colon scheduled [facility]) Allergies Active Allergy Reactions Criticality Noted Date [...] 0 Active Vitamin D (Ergocalciferol) 1.25 MG (16021 UT) Oral Capsule (Drisdol)Indications: Vitamin D deficiency [...] encounter Miscellaneous Notes * Telephone Encounter - Rosalinda De La Rosa LPN - 09/05/2023 3:03 PM EST Pt called to reschedule her colon that she had cancelled in Aug at [facility]. She is now scheduled for Sunday12/14/23 at [facility] with Shanon. She already has prep. documented in this encounter Plan of Treatment Upcoming Encounters Date Type Department Care Team ([facility] st Contact Info) Description 10/10/2023 4:00 PM EST Office Visit Dermatology [address] [phone] Moustapha Stevens PA-C [address] [place] [address] 11/26/2023 2:00 PM EDT Office Visit Family Practice [address] [address] Yin Morales PA-C [address] [place] [address] 12/14/2023 11:45 AM EDT Appointment OR [facility], Operating Room, [facility] 1st Floor [address] [place], [place] [phone] Magda Claudio, [address] [place], [place] [address] [address] 12/17/2023 3:00 PM EDT Office Visit Rheumatology [address] [place] [address] Morgan Gresham CRNP [address] [place] [address] Scheduled Procedures Name Priority Associated Diagnoses Date/Ti [...] D LEVEL ONCE IN A LIFETIME-USE SMARTSET# [id number] Completed 03/22/2023, 09/21/2021, 03/17/2021, Additional history exists [...] filedocumented as of this encounter Care Teams Photoengraver Apprentice Relationship Specialty Start Date End Date Yin Morales PA-C [address] [place] [address] PCP - General Physician Link Cutter 07/11/22 documented as of this encounter
--- OUTSIDE RECORDS SUMMARY | 2023-09-06 16:15 | External Medical Summary | Summary of Care ---
Author Name Unknown Organization [facility] Address [address] [place] [address] Phone [phone] Care Team Providers Care Near Eastern Archaeology Lecturer Name Role Phone Yin Morales PA-C Primary Care Provider Encounter Details Date Type Department Care Team (Late st Contact Info) Description 09/03/2023 Telephone [facility] [address] [place] [address] Hebrer Valenzuela, Bobby Montero MD [address] [place] [address] Allergies Active Allergy Reactions Criticality Noted Date Comments Amoxicillin 01/13/2005 Rash Salicylates 07/29/2010 Stomach upset Ciprofloxacin Other (Please comment) 05/14/2017 Dizziness Metronidazole Other (Please comment) 05/14/2017 Dizziness documented as of this encounter (statuses as of 09/03/2023) Medications Medication Sig Dispensed Refills Start Date [...] 0 Active Vitamin D (Ergocalciferol) 1.25 MG (56140 UT) Oral Capsule (Drisdol)Indications: Vitamin D deficiency [...] as of this encounter (statuses as of 09/03/2023) Active Problems Problem Noted Date Diagnosed Date [...] as of this encounter (statuses as of 09/03/2023) Resolved Problems Problem Noted Date Diagnosed Date Resolved Date Ovarian cyst 02/16/2009 03/26/2017 HTN, goal below 140/90 08/16/200503/20 Osteoporosis 05/17/2005 09/23/2019 Menopause 01/13/2005 08/30/2018 Overview: age 53 Dyslipidemia, goal to be determined 01/13/2005 03/20/2016 NO KNOWN PROBLEMS 05/14/2002 01/13/2005 documented as of this encounter (statuses as of 09/03/2023) Immunizations Name Administration Dates Next Due COVID-19 [...] encounter Miscellaneous Notes * Telephone Encounter - Vimal Kim Jr., LPN - 09/03/2023 3:27 PM EST Called patient. Left message on answering machine to call back. Letter mailed. documented in this encounter Plan of Treatment Upcoming Encounters Date Type Department Care Team ([facility] Contact Info) Description 10/10/2023 4:00 PM EST Office Visit Dermatology [address] [phone] Moustapha Stevens PA-C [address] [place] [address] 11/26/2023 2:00 PM EDT Office Visit Family Practice [address] [phone] Yin Morales PA-C [address] [place] [address] 12/17/2023 3:00 PM EDT Office Visit Rheumatology [place] [address] [place] [address] Morgan Gresham CRNP [address] [place] [address] Scheduled Procedures Name Priority Associated Diagnoses Date/Ti [...] D LEVEL ONCE IN A LIFETIME-USE SMARTSET# [id number] Completed 03/22/2023, 09/21/2021, 03/17/2021, Additional history exists [...] filedocumented as of this encounter Care Teams Near Eastern Archaeology Lecturer Relationship Specialty Start Date End Date Yin Morales PA-C [address] [place], [place] [address] [address] PCP - General Physician Peanut Grader 07/11/22 documented as of this encounter
--- OUTSIDE RECORDS SUMMARY | 2023-09-06 16:15 | External Medical Summary | Summary of Care ---
Author Name Unknown Organization [facility] Address [address] [facility] [place] [address] Phone [phone] Care Team Providers Care Forensic Photographer Name Role Phone Yin Morales PA-C Primary Care Provider Encounter Details Date Type Department Care Team (Late st Contact Info) Description 09/05/[address] [facility] [email or web address] [place] [address] Pedro Garnica MD [address] [place] [address] Allergies Active Allergy Reactions Criticality Noted Date [...] 0 Active Vitamin D (Ergocalciferol) 1.25 MG (95038 UT) Oral Capsule (Drisdol)Indications: Vitamin D deficiency [...] Encounter - Mary Aparicio LPN - 09/05/2023 3:36 PM EST See message from 06/01/23 * Telephone Encounter - Nataly Love OSA - 09/05/2023 2:56 PM EST Patient is returning call to get her prolia injection scheduled. She is having a procedure tomorrowand if someone call her back next week to schedule. Please advise documented in this encounter Plan of Treatment Upcoming Encounters Date Type Department Care Team ([facility] st Contact Info) Description 10/10/2023 4:00 PM EST Office Visit Dermatology [address] [phone] Moustapha Stevens PA-C [address] [place] [address] 11/26/2023 2:00 PM EDT Office Visit Family Practice [address] [phone] Yin Morales PA-C [address] [place] [address] 12/14/2023 11:45 AM EDT Appointment OR [facility], Operating Room, [facility] 1st Floor [address] [place] [address] Magda Claudio, [place] [address] 12/17/2023 3:00 PM EDT Office Visit Rheumatology [facility] [place] [address] [facility] [place], [place] [address] Morgan Gresham CRNP [address] [employer] [place] [address] Scheduled Procedures Name Priority Associated Diagnoses Date/Ti [...] D LEVEL ONCE IN A LIFETIME-USE SMARTSET# [id number] Completed 03/22/2023, 09/21/2021, 03/17/2021, Additional history exists [...] filedocumented as of this encounter Care Teams Forensic Photographer Relationship Specialty Start Date End Date Yin Morales PA-C [address] [place], [place] [address] [phone] PCP - General Physician Tipple Greaser 07/11/22 documented as of this encounter
--- OUTSIDE RECORDS SUMMARY | 2023-09-06 16:15 | External Medical Summary | Summary of Care ---
Author Name Unknown Organization [facility] Address [address] [facility] [address] Phone [phone] Care Team Providers Care Carton Repairer Name Role Phone Yin Morales PA-C Primary Care Provider Reason for Visit * Reason Onset Date Comments Precert In Process 06/01/2023 Prolia applyi vahe for assistance Encounter Details Date Type Department Care Team (Late st Contact Info) Description 06/01/2023 Telephone Rheumatology [facility] [address] [place], [place] [address] [address] Pedro Garnica MD [address] [place], [place] [address] [address] Precert In Process (Prolia applying for [...] 0 Active Vitamin D (Ergocalciferol) 1.25 MG (77540 UT) Oral Capsule (Drisdol)Indicatio ns:Vitamin D deficiency [...] name: PROLIA HCPCS code(s): J0897 AUTH #: [id number] Valid auth start date: 06/05/2023 Valid auth end date: 08/12/2099 Location: [facility] # of Visits: 99 Billing Units Approved: LIFETIME Diagnosis Code(s): M81.0 Contacted patient: YES, APPLYING FOR FINANCIAL ASSISTANCE * Telephone Encounter - Lily Alejandre OSA - 06/05/2023 3:59 PM EDT Prior Auth ([facility]) ID: [id number] Drug/Service Name: PROLIA 60 MG/ML SYRINGE Patient: CAPRI HERRERA Date Requested: 06/05/2023 3:54:27 PM MemberID: [id number] : 1940 submitted authorization request please see [...] Upcoming Encounters Date Type Department Care Team ([facility] Contact Info) Description 10/10/2023 4:00 PM EST Office Visit Dermatology [address] [phone] Moustapha Stevens PA-C [address] [place] [address] 11/26/2023 2:00 PM EDT Office Visit Family Practice [address] [phone] Yin Morales PA-C [address] [place] [address] 12/14/2023 11:45 AM EDT Appointment OR [facility], Operating Room, [facility] 1st Floor [address] [place] [address] Magda Claudio, DO [address] [place] [address] 12/17/2023 3:00 PM EDT Office Visit Rheumatology [facility] [address] [place] [address] Morgan Gresham CRNP [address] [place] [phone] Scheduled Procedures Name Priority Associated Diagnoses Date/Ti [...] D LEVEL ONCE IN A LIFETIME-USE SMARTSET# [id number] Completed 03/22/2023, 09/21/2021, 03/17/2021, Additional history exists [...] filedocumented as of this encounter Care Teams Carton Repairer Relationship Specialty Start Date End Date Yin Morales PA-C [address] [place] [address] [phone] PCP - General Physician Direct Sales Consultant 07/11/22 documented as of this encounter
--- OUTSIDE RECORDS SUMMARY | 2023-09-06 16:16 | External Medical Summary | Summary of Care ---
Author Name Unknown Organization [facility] Address [address] [place] [address] Phone [phone] Care Team Providers Care Design Intern Name Role Phone Yin Morales PA-C Primary Care Provider Reason for Visit * Reason Onset Date Comments Appointment 07/31/2023 Encounter Details Date Type Department Care Team ([facility] Contact Info) Description 07/31/2023 Telephone Family Practice [facility] [address] [place] [address] Yin Morales PA-C [address] [place] [address] Appointment Allergies Active Allergy Reactions Criticality Noted Date Comments Amoxicillin 01/13/2005 Rash Salicylates 07/29/2010 Stomach upset Ciprofloxacin Other (Please comment) 05/14/2017 Dizziness Metronidazole Other (Please comment) 05/14/2017 Dizziness documented as of this encounter (statuses as of 07/31/2023) Medications Medication Sig Dispensed Refills Start Date [...] 0 Active Vitamin D (Ergocalciferol) 1.25 MG (69489 UT) Oral Capsule (Drisdol)Indications: Vitamin D deficiency [...] as of this encounter (statuses as of 07/31/2023) Active Problems Problem Noted Date Diagnosed Date [...] as of this encounter (statuses as of 07/31/2023) Resolved Problems Problem Noted Date Diagnosed Date Resolved Date Ovarian cyst 02/16/2009 03/26/2017 HTN, goal below 140/90 08/16/200503/20 Osteoporosis 05/17/2005 09/23/2019 Menopause 01/13/2005 08/30/2018 Overview: age 53 Dyslipidemia, goal to be determined 01/13/2005 03/20/2016 NO KNOWN PROBLEMS 05/14/2002 01/13/2005 documented as of this encounter (statuses as of 07/31/2023) Immunizations Name Administration Dates Next Due COVID-19 [...] encounter Miscellaneous Notes * Telephone Encounter - Robby Martins OSA - 07/31/2023 2:04 PM EST Please provide patient with results, and route to front office for scheduling. Thank you. * Telephone Encounter - Yin Morales PA-C - 07/31/2023 1:54 PM EST Please call patient. Please inform patient I received report from pre-anesthesia testing that therewas some abnormal findings on pre-anesthesia EKG. Patient needs office visit for repeat EKG and possible further testing / preoperative clearance. documented in this encounter Plan of Treatment Upcoming Encounters Date Type Department Care Team (Late st Contact Info) Description 08/15/2023 12:00 PM EST Appointment Endoscopy, [address] [address] Herber Valenzuela, Bobby Montero MD [address] [place] [address] 08/20/2023 1:30 PM EST Appointment Radiology, [address] [address] 10/10/2023 4:00 PM EST Office Visit Dermatology [facility] [address] [place] [phone] Moustapha Stevens PA-C [address] [place] [address] 11/26/2023 2:00 PM EDT Office Visit Family Practice [facility] [address] [place] [address] Yin Morales PA-C [address] [facility] [place] [address] 12/17/2023 3:00 PM EDT Office Visit Rheumatology [place] [phone] [employer] [place] [address] Morgan Gresham CRNP [address] [place] [address] Scheduled Procedures Name Priority Associated Diagnoses Date/Ti [...] D LEVEL ONCE IN A LIFETIME-USE SMARTSET# [id number] Completed 03/22/2023, 09/21/2021, 03/17/2021, Additional history exists [...] filedocumented as of this encounter Care Teams Design Intern Relationship Specialty Start Date End Date Yin Morales PA-C [address] [place], [place] [address] [phone] PCP - General Physician Garden Equipment Mechanic 07/11/22 documented as of this encounter
--- OUTSIDE RECORDS SUMMARY | 2023-09-06 16:16 | External Medical Summary | Summary of Care ---
Author Name Unknown Organization [facility] Address [address] [place] [address] Phone [phone] Care Team Providers Care Ticket Printer Name Role Phone Yin Morales PA-C Primary Care Provider Reason for Visit * Reason Comments EKG Pt is present today for an EKG for surgery as per Yin Morales. Encounter Details Date Type Department Care Team ([facility] Contact Info) Description 08/01/2023 2:20 PM EST Nurse Only Ancillary [address] [phone] [place], Nurse [address] [address] EKG (Pt is present today for an EKG for buchanan... Allergies Active Allergy Reactions Criticality Noted Date Comments Amoxicillin 01/13/2005 Rash Salicylates 07/29/2010 Stomach upset Ciprofloxacin Other (Please comment) 05/14/2017 Dizziness Metronidazole Other (Please comment) 05/14/2017 Dizziness documented as of this encounter (statuses as of 08/02/2023) Medications Medication Sig Dispensed Refills Start Date [...] 0 Active Vitamin D (Ergocalciferol) 1.25 MG (13109 UT) Oral Capsule (Drisdol)Indications: Vitamin D deficiency [...] as of this encounter (statuses as of 08/02/2023) Active Problems Problem Noted Date Diagnosed Date [...] as of this encounter (statuses as of 08/02/2023) Resolved Problems Problem Noted Date Diagnosed Date Resolved Date Ovarian cyst 02/16/2009 03/26/2017 HTN, goal below 140/90 08/16/200503/20 Osteoporosis 05/17/2005 09/23/2019 Menopause 01/13/2005 08/30/2018 Overview: age 53 Dyslipidemia, goal to be determined 01/13/2005 03/20/2016 NO KNOWN PROBLEMS 05/14/2002 01/13/2005 documented as of this encounter (statuses as of 08/02/2023) Immunizations Name Administration Dates Next Due COVID-19 [...] on file documented as of this encounter Progress Notes * Yin Morales PA-C - 08/02/2023 9:54 AM EST Images from the original note were not included. Pre-Operative Medical Evaluation Procedure Information Type of Surgery: Right total knee arthroplasty Date of procedure: 09/06/23 Medical History Problem List: Primary osteoarthritis of right knee (03/29/2023) Cyst of left ovary (03/29/2023) Age-related osteoporosis without current pathological fracture (2022) Ulcerative colitis without complications (HCC) (08/17/2017) Essential hypertension with goal blood pressure less than 140/90 (03/2016) Dyslipidemia, goal LDL below 130 (03/20/2016) Vitamin D deficiency (10/31/2010) Ovarian cyst (02/16/2009) Urge incontinence (03/04/2007) ADVANCE DIRECTIVE INFORMATION (08/16/2005) HTN, goal below 140/90 (08/16/2005) Osteoporosis (05/17/2005) Menopause (01/13/2005) Dyslipidemia, goal to be determined (01/13/2005) NO KNOWN PROBLEMS (05/14/2002) Current Medications oxyBUTYnin Chloride 5 MG Oral Tablet (Ditropan), TAKE 1 TABLET BY MOUTH 3 TIMES DAILY (MORNING, NOON AND BEDTIME) amLODIPine Besy-Benazepril HCl 5-20 MG Oral Capsule (Lotrel), TAKE ONE CAPSULE BY MOUTH ONCE DAILY Atorvastatin Calcium 20 MG Oral Tablet (Lipitor), 20 mg, Oral, QHS Vitamin D (Ergocalciferol) 1.25 MG (75354 UT) Oral Capsule (Drisdol), TAKE ONE CAPSULE BY MOUTH EVERY 4 WEEKS Polyethylene Glycol 3350 17 GM/SCOOP Oral Powder (MiraLax), 17 g, Oral, Daily(AM) Senna 8.6 MG Oral Capsule, Take by mouth. Metoprolol Tartrate 50 MG Oral Tablet (Lopressor), TAKE 1 TABLET BY MOUTH TWICE DAILY Propylene Glycol 0.6 % Ophthalmic Solution, Instill 2 Drops into eye. CENTRUM SILVER PO TABS, one daily GLUCOSAMINE 500 MG PO TABS, one daily Allergies: Amoxicillin, Aspirin [salicylates], Ciprofloxacin, and Metronidazole Past Medical History: has a past medical history of Dyslipidemia, goal to be determined (01/13/2005), HTN, goal below 140/90, Menopause (01/13/2005), and Osteoporosis (05/17/2005). Past Surgical History: has a past surgical history that includes Colonoscopy, Diagnostic (Rectum) (07/03/2017). Social History: reports that she has never smoked. She has never used smokeless tobacco. She reports current alcohol use. She reports that she does not use drugs. Family History: family history includes Cancer in her grandmother (maternal) and mother; Diabetes in her aunt (unspecified) and grandmother (maternal); Stroke in her father. EKG by my review is significant for: Normal sinus rhythm Surgical Risk Scoring Revised Cardiac Risk Index (RCRI) High-risk type of surgery (examples include vascular and any open intraperitoneal or intrathoracic procedures): 0=No History of ischemic heart disease (history of myocardial infarction or positive exercise test, current compliant of chest pain considered to be secondary to myocardia ischemia, use of nitrate therapy, or ECG with pathological Q waves; do not count prior coronary revascularization procedure unless one of the other criteria for ischemic heart disease is present): 0=No History of heart failure: 0=No History of cerebrovascular disease: 0=No Diabetes mellitus requiring treatment with insulin: 0=No Preoperative serum creatinine >2.0 mg/dL (177 micromol/L): 0=No Pt has revised cardiac index score of: No Risk Factors- 0.4% (95% CI: 0.1-0.8) Assessment and Plan Preoperative clearance - EKG; Future - Repeat EKG in office on 08/01/23 showed normal sinus rhythm. No change since last EKG 2011. - Cleared for surgery. Surgical Risk Assessment Patient is low medical risk for the listed procedure. * Kenia Castañeda CCMA - 08/01/2023 2:17 PM EST The patient has been properly identified by confirmation of name and date of . Chief Complaint Patient presents with EKG Pt is present today for an EKG for surgery as per Yin Morales. ekg done as per dr's order documented in this encounter Plan of Treatment Upcoming Encounters Date Type Department Care Team (Late st Contact Info) Description 08/15/2023 12:00 PM EST Appointment Endoscopy, [address] [address] Herber Valenzuela, Bobby Montero MD [address] [place] [address] 08/20/2023 1:30 PM EST Appointment Radiology, [address] [address] 10/10/2023 4:00 PM EST Office Visit Dermatology [address] [phone] Moustapha Stevens PA-C [address] [place] [address] 11/26/2023 2:00 PM EDT Office Visit Family Practice [facility] [address] [place] [phone] Yin Morales PA-C [address] [place] [address] 12/17/2023 3:00 PM EDT Office Visit Rheumatology [place] [phone] [facility] [address] Morgan Gresham CRNP [facility] [place] [address] Scheduled Procedures Name Priority Associated Diagnoses Date/Ti [...] D LEVEL ONCE IN A LIFETIME-USE SMARTSET# [id number] Completed 03/22/2023, 09/21/2021, 03/17/2021, Additional history exists [...] Not on filedocumented as of this encounter Results * EKG (08/01/2023 2:25 PM EST) 08/01/2023 2:25 PM EST Narrative Procedure Note Davon Gomez MD - 08/01/2023 2:25 PM EST REASON FOR STUDY: PREOP CONCLUSIONS: Normal sinus rhythm Normal ECG When compared with ECG of 16-JAN-2012 15:03, No significant change was found Ventricular Rate: 61 Atrial Rate: 61 OH Interval: 180 QRS Duration: 88 QT/QTc: 416/418 ms P-R-T [place]: 71 : 38 : 53 degrees Yin Morales PA-C EKG Performing Organization Address City/State/[facility] Co de Phone Number [facility] documented in this encounter Visit Diagnoses Diagnosis Preoperative clearance- Primary Preoperative examination, unspecified Preoperative clearance Preoperative examination, unspecified documented in this encounter Care Teams Ticket Printer Relationship Specialty Start Date End Date Yin Morales PA-C [address] [place] [address] PCP - General Physician Vp Integration 07/11/22 documented as of this encounter
--- OUTSIDE RECORDS SUMMARY | 2023-09-06 16:16 | External Medical Summary | Summary of Care ---
Author Name Unknown Organization [facility] Address [address] [place] [address] Phone [phone] Care Team Providers Care Automotive Machinist Name Role Phone Yin Morales PA-C Primary Care Provider Encounter Details Date Type Department Care Team (Latest Contact Info) Description 08/15/2023 11:59 PM [facility] Hospital Encounter Endoscopy, [facility] [address] [place] [address] Herber Valenzuela, Bobby Montero MD [address] [place] [address] Canceled (Patient Cancel-Coronavirus (COVID19) Concern) Discharge Disposition: Home - Self Care Allergies Active Allergy Reactions Criticality Noted Date Comments Amoxicillin 01/13/2005 Rash Salicylates 07/29/2010 Stomach upset Ciprofloxacin Other (Please comment) 05/14/2017 Dizziness Metronidazole Other (Please comment) 05/14/2017 Dizziness documented as of this encounter (statuses as of 08/22/2023) Medications Medication Sig Dispensed Refills Start Date [...] 0 Active Vitamin D (Ergocalciferol) 1.25 MG (26041 UT) Oral Capsule (Drisdol)Indications: Vitamin D deficiency [...] as of this encounter (statuses as of 08/22/2023) Active Problems Problem Noted Date Diagnosed Date [...] as of this encounter (statuses as of 08/22/2023) Resolved Problems Problem Noted Date Diagnosed Date Resolved Date Ovarian cyst 02/16/2009 03/26/2017 HTN, goal below 140/90 08/16/200503/20 Osteoporosis 05/17/2005 09/23/2019 Menopause 01/13/2005 08/30/2018 Overview: age 53 Dyslipidemia, goal to be determined 01/13/2005 03/20/2016 NO KNOWN PROBLEMS 05/14/2002 01/13/2005 documented as of this encounter (statuses as of 08/22/2023) Immunizations Name Administration Dates Next Due COVID-19 [...] on file documented as of this encounter Nursing Notes * Daniel Alfonso, RN - 08/15/2023 12:00 PM EST Attempted to call patient for pre-op phone call. Message left for patient to call back. * Trista Mahmood RN - 08/15/2023 12:00 PM EST PREOP PATIENT INFORMATION AND EDUCATION: MEDICATION INSTRUCTIONS: The day of surgery/procedure, you may TAKE the following medications with a sip of water up to 2 hours prior to your arrival time: metoprolol AVOID / DO NOT TAKE the following medications the morning of surgery/procedure: AVOID / DO NOT TAKE the following medications the evening prior to and morning of surgery/procedure: STOP taking the following medications the noted number of days prior to surgery/procedure unless otherwise specified by your surgeon: Please follow surgeon's instructions regarding use of Aspirin, Coumadin, Plavix, Eliquis, and any other blood thinner including NSAIDs (non-steroidal anti- inflammatory drugs, eg, Advil, Ibuprofen, Motrin, Aleve, Naproxen); if you have any questions regarding your anticoagulation therapy please contact your surgeon's clinic. Please verify any proposed stoppage of your anticoagulation therapy with the agent's prescribing provider. 10 days prior to surgery/procedure Stop all Herbal supplements, Green Tea, Turmeric, Melatonin, CBD, THC, etc. Stop all Vitamins (including Vitamin E) 24 hours prior to surgery/procedure DO NOT consume any alcohol. DO NOT use medical marijuana. DO NOT smoke or use tobacco products of any kind after midnight prior to surgery. *Using any of these products may increase your risks of procedural complications. IF IT IS LESS THAN RECOMMENDED STOPPAGE TIME PLEASE STOP AT TIME OF NOTIFICATION. FASTING RECOMMENDATIONS: To reduce risk, it is important for all elective surgery patients to follow the specific fasting guidelines listed below. If you have received more stringent guidelines, please follow the MOST RESTRICTIVE guidelines that you have been provided. DO NOT EAT after midnight on the night prior to your surgery date. You are allowed to drink clear liquids up to two hours prior to arrival time to the hospital or surgery center. Examples of clear liquids include water, clear fruit juice without pulp, clear carbonated beverages, clear tea, and black coffee. Any drinks given by your surgical service take as directed. THE DAY BEFORE YOUR SURGERY: -Drink plenty of fluid the day before your surgery. Contact your surgeon's office if you develop any of the following within 2 weeks of surgery: A cold Infection Fever Shingles Chicken pox or exposure to chicken pox Open areas such as scrapes, cuts, suarez or other skin conditions Rashes GENERAL INSTRUCTIONS FOR PREPARING FOR SURGERY: BATHING INSTRUCTIONS: Bathe the evening prior to and the morning of surgery/procedure. Cleanse your body using ONLY anti-bacterial soap (eg, Dial, Safeguard) or any specific soap/cleansers and instructions provided by your surgeon (eg, Chlorhexidine). -You should brush your teeth the morning of surgery. Do NOT apply any lotions, powders, sprays, creams, oils, make-up, or deodorants after bathing. No hairspray, or nail mauritian on fingers or toes. Day of surgery/procedure do not use tampons. If you wear contacts wear your eyeglasses if available otherwise bring your contact supplies with you to remove them prior to your surgery/procedure. If you wear glasses or dentures, please bring cases in which you can store them during your surgery. Please remove all piercings and jewelry and leave them at home. Wear comfortable and loose clothing. -Please leave all valuables at home. -If you use a CPAP and are staying overnight, please bring your mask and tubing with you to the hospital. -If you use an assistive mobility device (walker, cane, etc), please label it with your name and bring to hospital. -An escort contract driver is required if you are being discharged the same day of the surgery. You should have a responsible adult over the age of 18 [address] drive you home. This person should be present with youin the hospital at the time of discharge and for the first 24 hours after the surgery to support your needs. If you are taking a taxi home, you must have your responsible republican accompany you in the taxi ride home at the time of discharge. OR times subject to change. Please check voicemail messages the day/evening before your surgery forany updates. PRE-OP: You will be taken to the pre-op area where your vital signs (blood pressure, pulse and temperature)will be taken. Any preparations that need to be done will be done there. When it is time for your surgery, you will be taken to the operating room. PARENTS OF PEDIATRIC PATIENTS WILL BE ALLOWED TO STAY WITH THEIR CHILDREN UNTIL THEY ARE ESCORTED TO THE OPERATING ROOM OUTPATIENT SURGERY PATIENTS: After your surgery you will be taken to the Same Day Surgery Unit when you are awake and will go home from there. You will get instructions about your home care before you leave. Arrange to have someone drive you home from the hospital. You may not drive for 24 hours after anesthesia. You must havean adult stay with you at home for 24 hours after your operation. This is very important. If you are not able to comply with these guidelines, your Short Stay surgery cannot be done. ADMISSION PATIENTS: After your stay in the recovery area, you will be taken to your room. Your family may visit you in your room based on current visitation policy. If a next day discharge is expected, it is important to make arrangements for a contract driver to take you home. Please be aware our visitation policies are subject to change Professionals, attendants, caregivers or family members are allowable visitors for patients with intellectual, developmental or cognitive disabilities, communication barriers or behavioral concerns. Because patients' and families' needs vary, they will be taken into account when applying visitation restrictions. [facility]: ext 4 Please enter through the Main Entrance of the [facility] which is directly across from the main parking lot. Stop at the registration desk, which is inside the main entrance, to register first. They will then direct you back to Same Day Surgery. You will be called the day before surgery (on Sunday if your surgery is Sunday) with the time to be at the hospital. If you have notbeen called by 4:00 p.m., please call [phone] and ask for the nursing batch plant supervisor. THANK YOU FOR CHOOSING [facility]! documented in this encounter Plan of Treatment Upcoming Encounters Date Type Department Care Team ([facility] st Contact Info) Description 10/10/2023 4:00 PM EST Office Visit Dermatology [facility] [address] [place] [phone] Moustapha Stevens PA-C [address] [place] [address] 11/26/2023 2:00 PM EDT Office Visit Family Practice [facility] [address] [place] [address] Yin Morales PA-C [address] [place] [address] [phone] 12/17/2023 3:00 PM EDT Office Visit Rheumatology [place] [id number] [place], [place] [address] Morgan Gresham CRNP [address] [place] [address] Scheduled Procedures Name Priority Associated Diagnoses Date/Ti [...] D LEVEL ONCE IN A LIFETIME-USE SMARTSET# [id number] Completed 03/22/2023, 09/21/2021, 03/17/2021, Additional history exists [...] filedocumented as of this encounter Care Teams Automotive Machinist Relationship Specialty Start Date End Date Yin Morales PA-C [address] [place] [address] [place] [address] PCP - General Physician Patient Experience Coordinator 07/11/22 documented as of this encounter
--- OUTSIDE RECORDS SUMMARY | 2023-09-06 16:16 | External Medical Summary | Summary of Care ---
Author Name Unknown Organization [facility] Address [address] [place] [address] Phone [phone] Care Team Providers Care Consulting Utility Forester Name Role Phone Yin Morales PA-C Primary Care Provider Reason for Visit * Reason Onset Date Comments Appointment 07/31/2023 Encounter Details Date Type Department Care Team ([facility] Contact Info) Description 07/31/2023 Telephone Family Practice [facility] [address] [place] [address] Yin Morales PA-C [address] [place] [address] Appointment Allergies Active Allergy Reactions Criticality [...] 0 Active Vitamin D (Ergocalciferol) 1.25 MG (96920 UT) Oral Capsule (Drisdol)Indications: Vitamin D deficiency [...] encounter Miscellaneous Notes * Telephone Encounter - Madeline Hernandez MED ASSIST - 07/31/2023 4:02 PM EST Pt aware transferred out front for scheduling. * Telephone Encounter - Robby Martins OSA [...] Description 08/15/2023 12:00 PM EST Appointment Endoscopy, [address] [address] Herber Valenzuela, Bobby Montero MD [address] [place] [address] 08/20/2023 1:30 PM EST Appointment Radiology, [address] [address] 10/10/2023 4:00 PM EST Office Visit Dermatology [facility] [address] [place] [phone] Moustapha Stevens PA-C [address] [place] [address] 11/26/2023 2:00 PM EDT Office Visit Family Practice [facility] [address] [place] [phone] Yin Morales PA-C [address] [place] [address] 12/17/2023 3:00 PM EDT Office Visit Rheumatology [facility] [address] [place] [address] Morgan Gresham CRNP [address] [employer] [place] [address] Scheduled Procedures Name Priority Associated Diagnoses Date/Ti [...] D LEVEL ONCE IN A LIFETIME-USE SMARTSET# [id number] Completed 03/22/2023, 09/21/2021, 03/17/2021, Additional history exists [...] filedocumented as of this encounter Care Teams Consulting Utility Forester Relationship Specialty Start Date End Date Yin Morales PA-C [address] [place] [address] PCP - General Physician Garbage Truck Driver 07/11/22 documented as of this encounter
--- OUTSIDE RECORDS SUMMARY | 2023-09-06 16:16 | External Medical Summary | Summary of Care ---
Author Name Unknown Organization [facility] Address [address] [place] [address] Phone [phone] Care Team Providers Care Pecan Huller Name Role Phone Yin Morales PA-C Primary Care Provider Reason for Visit * Reason Comments Follow Up Pt is here for a 4 m [facility] follow up Encounter Details Date Type Department Care Team (Latest Contact Info) Description 07/31/2023 7:20 AM EST Office Visit [facility] [address] [place] [address] Yin Morales PA-C [address] [place] [address] Essential hypertension with goal blood pressure less than 140/90*; Dyslipidemia, goal LDL below 130; Ulcerative colitis without complications, unspecified location (HCC); Urge incontinence; Age-related osteoporosis without current pathological fracture; Primary osteoarthritis of right knee; Vitamin D deficiency; Cyst of left ovary; Encounter for screening mammogram for breast cancer Allergies Active Allergy Reactions Criticality Noted Date [...] 0 Active Vitamin D (Ergocalciferol) 1.25 MG (68516 UT) Oral Capsule (Drisdol)Indications: Vitamin D deficiency [...] on file documented as of this encounter Last Filed Vital Signs Vital Sign Reading Time Taken Comments Blood Pressure 132/72 07/31/2023 7:23 AM EST Pulse 61 07/31/2023 7:23 AM EST Temperature 36.8 C (98.2 F) 07/31/2023 7:23 AM ES T Respiratory Rate 12 07/31/2023 7:23 AM EST Oxygen Saturation 98% 07/31/2023 7:23 AM EST Inhaled Oxygen Concentration - - Weight 80.1 kg (176 lb 8 oz) 07/31/2023 7:23 AM EST Height - - Body Mass Index 32.28 03/01/2023 9:45 AM EDT documented in this encounter Progress Notes * Yin Morales PA-C - 07/31/2023 7:20 AM EST Images from the original note were not included. History of Present Illness Capri Herrera is a 83 year old female who presents to the [facility] for follow up regarding chronic medical problems. Concerns: None HTN: Patient's hypertension is well controlled on Amlodipine-benazepril and metoprolol. Patient denied any side effects from medication. Denies headache, dizziness, CP, SOB and lower extremity edema. Dyslipidemia - Well controlled on Lipitor. Last LDL was 81 on 03/22/23. Denied muscle aches and sideeffects of medication. Ulcerative colitis - Had one episode years ago. Has had no issues since. Denied abdominal pain, diarrhea, blood in stool and black stool. Scheduled for repeat colonoscopy in August 2023. Urge incontinence - Stable on Oxybutynin. Osteoporosis - Following with osteoporosis clinic. Will be starting Prolia 12/2023. OA of right knee - Chronic pain in right knee. Was following with Dr. Larios. Received injections in right knee which helped. Having a hard time even getting groceries due to pain. Scheduled for TKA by Dr. Barnett at [facility] 09/06/23. Left ovarian cyst - Patient stated cyst has been present without change for over 10 years. No change as of US on 03/2023. US showed 2.9 x 2.5 x 3.7 cm left ovarian cystic lesion with some debris and possible calcification. Was described on ultrasound dated 02/06/2020 and does not appear to be significantly changed. Mood - Lost her daughter November 2022. At times feels down and tearful when she thinks about her. Also gets tearful around holidays. Adjusting to first Yohana without her. Reports she has good family support. Deferred medication at this time. Still has interest in normal activities. Enjoys the grand kids. Shopped and wrapped presents for 40 people. Is able to care for herself. Denied suicidal ideation and homicidal ideation. Colon cancer screen - 07/03/17 Repeat in 5 years. - Scheduled 08/2023 Mammogram 04/07/20 - Negative - Overdue Physical Exam Vitals: 07/31/23 0723 Temp: 36.8 C (98.2 F) Pulse: 61 Resp: 12 SpO2: 98% BP: 132/72 BP Readings from Last 3 Encounters: 07/31/23 132/72 03/29/23 142/84 02/28/23 122/70 Physical Exam Vitals and nursing note reviewed. Constitutional: General: She is not in acute distress. Appearance: Normal appearance. She is not ill-appearing, toxic-appearing or diaphoretic. HENT: Head: Normocephalic and atraumatic. Nose: Nose normal. No congestion or rhinorrhea. Mouth/Throat: Mouth: Mucous membranes are moist. Eyes: General: No scleral icterus. Extraocular Movements: Extraocular movements intact. Conjunctiva/sclera: Conjunctivae normal. Cardiovascular: Rate and Rhythm: Normal rate and regular rhythm. Heart sounds: Normal heart sounds. No murmur heard. Pulmonary: Effort: Pulmonary effort is normal. No respiratory distress. Breath sounds: Normal breath sounds. No stridor. No wheezing, rhonchi or rales. Musculoskeletal: Right lower leg: No edema. Left lower leg: No edema. Skin: General: Skin is warm and dry. Findings: No rash. Neurological: Mental Status: She is alert and oriented to person, place, and time. Mental status is at baseline. Psychiatric: Mood and Affect: Mood normal. Behavior: Behavior normal. I have reviewed the following results: CMP, Lipid Panel, Hemoglobin A1C, CBC, and 25-Hydroxy Vit D Assessment and Plan Essential hypertension with goal blood pressure less than 140/90 - Continue amlodipine-benazepril and metoprolol - Low salt diet Dyslipidemia, goal LDL below 130 - Continue Lipitor - Low fat diet Ulcerative colitis without complications, unspecified location (HCC) - Stable Urge incontinence - Continue Oxybutynin Age-related osteoporosis without current pathological fracture - Follow with rheumatology Primary osteoarthritis of right knee - Scheduled for TKA Vitamin D deficiency - Continue Vitamin D Cyst of left ovary - Stable Encounter for screening mammogram for breast cancer - MAMMOGRAM SCREENING IVAN BILATERAL; Future Wrap-Up Follow-up: Return in about 4 months (around 11/30/2023). | Check-out note: Mammogram - [facility] Time: I spent a total of 30-39 minutes (exact time 38 mins) on the date of service in preparation, delivery, and documentation of the care provided to Capri Herrera excluding any time spent in the performance of separately billed services. documented in this encounter Nursing Notes * Faiza Correa LPN - 07/31/2023 7:22 AM EST The patient has been properly identified by confirmation of name and date of . Chief Complaint Patient presents with Follow Up Pt is here for a 4 month follow up documented in this encounter Plan of Treatment Upcoming Encounters Date Type Department Care Team (Late st Contact Info) Description 08/15/2023 12:00 PM EST Appointment Endoscopy, [place] [id number] [place] [address] Herber Valenzuela, Bobby Montero MD [address] [place] [address] 08/20/2023 1:30 PM EST Appointment Radiology, [facility] [address] [place] [address] 10/10/2023 4:00 PM EST Office Visit Dermatology [facility] [address] [place] [phone] Moustapha Stevens PA-C [address] [place] [address] 11/26/2023 2:00 PM EDT Office Visit Family Practice [facility] [address] [place] [phone] Yin Morales PA-C [address] [place] [address] 12/17/2023 3:00 PM EDT Office Visit Rheumatology [address] [place] [address] Morgan Gresham CRNP [address] [place] [address], [place] [address] Scheduled Orders Name Type Priority Associated Diagnoses Orde r Schedule MAMMOGRAM SCREENING IVAN BILATERAL Medical Imaging Routine Encounter for screening mammogram for breast cancer Expected: 07/31/2023, Expires: 08/31/2024 Scheduled Procedures Name Priority Associated Diagnoses Date/Ti [...] D LEVEL ONCE IN A LIFETIME-USE SMARTSET# [id number] Completed 03/22/2023, 09/21/2021, 03/17/2021, Additional history exists [...] Not on filedocumented as of this encounter Visit Diagnoses Diagnosis Essential hypertension with goal blood pressure less than 140/90- Primary Dyslipidemia, goal LDL below 130 Other and unspecified hyperlipidemia Ulcerative colitis without complications, unspecified location (HCC) Urge incontinence Age-related osteoporosis without current pathological fracture Senile osteoporosis Primary osteoarthritis of right knee Primary localized osteoarthrosis, lower leg Vitamin D deficiency Unspecified vitamin D deficiency Cyst of left ovary Other and unspecified ovarian cyst Encounter for screening mammogram for breast cancer documented in this encounter Care Teams Pecan Huller Relationship Specialty Start Date End Date Yin Morales PA-C [address] [place], [place] [address] [phone] PCP - General Physician Marketing Support Manager 07/11/22 documented as of this encounter"
--- OUTSIDE RECORDS SUMMARY | 2023-09-06 16:16 | External Medical Summary | Summary of Care ---
Author Name Unknown Organization [facility] Address [address] [place] [address] Phone [phone] Care Team Providers Care Yard Hostler Name Role Phone Yin Morales PA-C Primary Care Provider Reason for Visit * Reason Comments EKG Pt is present today for an EKG for surgery as per Yin Morales. Encounter Details Date Type Department Care Team ([facility] Contact Info) Description 08/01/2023 2:20 PM EST Nurse Only Ancillary [address] [phone] [place], Nurse [address] [address] EKG (Pt is present today for an EKG for buchanan... Allergies Active Allergy Reactions Criticality Noted Date Comments Amoxicillin 01/13/2005 Rash Salicylates 07/29/2010 Stomach upset Ciprofloxacin Other (Please comment) 05/14/2017 Dizziness Metronidazole Other (Please comment) 05/14/2017 Dizziness documented as of this encounter (statuses as of 08/01/2023) Medications Medication Sig Dispensed Refills Start Date [...] 0 Active Vitamin D (Ergocalciferol) 1.25 MG (93654 UT) Oral Capsule (Drisdol)Indications: Vitamin D deficiency [...] as of this encounter (statuses as of 08/01/2023) Active Problems Problem Noted Date Diagnosed Date [...] as of this encounter (statuses as of 08/01/2023) Resolved Problems Problem Noted Date Diagnosed Date Resolved Date Ovarian cyst 02/16/2009 03/26/2017 HTN, goal below 140/90 08/16/200503/20 Osteoporosis 05/17/2005 09/23/2019 Menopause 01/13/2005 08/30/2018 Overview: age 53 Dyslipidemia, goal to be determined 01/13/2005 03/20/2016 NO KNOWN PROBLEMS 05/14/2002 01/13/2005 documented as of this encounter (statuses as of 08/01/2023) Immunizations Name Administration Dates Next Due COVID-19 [...] as of this encounter Progress Notes * Kenia Castañeda CCMA - 08/01/2023 2:17 [...] Description 08/15/2023 12:00 PM EST Appointment Endoscopy, [address] [address] Herber Valenzuela, Bobby Montero MD [address] [place] [address] 08/20/2023 1:30 PM EST Appointment Radiology, [address] [address] 10/10/2023 4:00 PM EST Office Visit Dermatology [address] [phone] Moustapha Stevens PA-C [address] [place] [address] 11/26/2023 2:00 PM EDT Office Visit Family [facility] [address] [place] [phone] Yin Morales PA-C [address] [place] [address] 12/17/2023 3:00 PM EDT Office Visit Rheumatology [place] [address] [facility] [place] [address] Morgan Gresham CRNP [address] [place] [address] Scheduled Orders Name Type Priority Associated Diagnoses Orde r Schedule EKG EKG Routine Preoperative clearance Expected: 08/01/2023 (Approximate), Expires: 09/01/2024 Scheduled Procedures Name Priority Associated Diagnoses Date/Ti [...] D LEVEL ONCE IN A LIFETIME-USE SMARTSET# [id number] Completed 03/22/2023, 09/21/2021, 03/17/2021, Additional history exists [...] as of this encounter Visit Diagnoses Diagnosis Preoperative clearance- Primary Preoperative examination, unspecified documented in this encounter Care Teams Yard Hostler Relationship Specialty Start Date End Date Yin Morales PA-C [address] [place] [address] [place] [address] PCP - General Physician Glazier Structural Glass 07/11/22 documented as of this encounter
[2023-09-06] MEDS ORDERED: MAGNESIUM HYDROXIDE SUSP 30 ML UDC PO PRN (16:45)
[2023-09-06] MEDS ORDERED: NALOXONE HCL 0.4 MG/1 ML VIAL/CARP IV PRN (16:45)
[2023-09-06] MEDS ORDERED: ONDANSETRON INJ 2 MG/ML 2 ML VIAL IV PRN (16:45)
[2023-09-06] MEDS ORDERED: ALUMINUM/MAGNESIUM SUSP 30 ML UDC PO PRN (16:45)
[2023-09-06] MEDS ORDERED: METOCLOPRAMIDE HCL INJ 5 MG/ML 2 ML VIAL IV PRN (16:45)
[2023-09-06] MEDS ORDERED: bisacodyL 10 MG SUPP PR PRN (16:45)
[2023-09-06] MEDS ORDERED: oxyCODONE HCL IR 5 MG TAB (IMMEDIATE RELEASE) PO PRN (16:45)
[2023-09-06] MEDS ORDERED: HYDROmorphone INJ 0.5 MG/0.5 ML SYR IV PRN (16:45)
[2023-09-06] MEDS: ALLERGY Noted to ORDERED Medication SCH ×2 (16:49→16:50)
[2023-09-06] MEDS: SODIUM CHLORIDE 0.9% 1,000 ML IV SCH (17:32)
[2023-09-06] MEDS: ASCORBIC ACID 500 MG TAB PO SCH (17:32)
[2023-09-06] MEDS: KETOROLAC TROMETHAMINE 15 MG/ML VIAL IV SCH ×2 (17:37→22:35)
[2023-09-06] MEDS: ceFAZolin 2000MG 2,000 MG/15 ML SYR IV SCH (19:59)
[2023-09-06] MEDS: oxyBUTYnin chloride 5 MG TAB PO SCH (20:00)
[2023-09-06] MEDS: METOPROLOL TARTRATE 50 MG TAB PO SCH (20:00)
[2023-09-06] MEDS: DOCUSATE SODIUM 100 MG CAP PO SCH (20:01)
[2023-09-06] MEDS: ACETAMINOPHEN 500 MG TAB PO SCH (20:01)
[2023-09-06] MEDS: ASPIRIN 81 MG ECTAB PO SCH (20:02)
[2023-09-06] MEDS ORDERED: TRANEXAMIC ACID / 0.7% NACL 1,000 MG/100 ML BAG IV SCH (20:45)
[2023-09-06] MEDS ORDERED: NON-FORMULARY MEDICATION (Glucos Sul 2kcl-Msm-Chond-C-Mn [Glucosamine Chondroitin] 550-30- PO SCH (21:00)
[2023-09-06] MEDS ORDERED: NON-FORMULARY MEDICATION (Sennosides [Senna] 8.6 mg capsule) PO SCH (21:00)
[2023-09-06] MEDS ORDERED: SENNA 8.6 MG TAB PO SCH ×2 (21:00)
[2023-09-06] MEDS ORDERED: ATORVASTATIN 20 MG TAB PO SCH (21:00)
[2023-09-06] MEDS ORDERED: NON-FORMULARY MEDICATION (Multivitamin [Daily Multi-Vitamin] tablet) PO SCH (21:00)
[2023-09-07] MEDS: SODIUM CHLORIDE 0.9% 1,000 ML IV SCH (03:36)
--- OUTSIDE RECORDS SUMMARY | 2023-09-07 05:11 | External Medical Summary | Summary of Care ---
Author Name Unknown Organization [facility] [address] [facility] [address] Phone [phone] Care Team Providers Care Sales Floor Team Member Name Role Phone Yin Morales PA-C Primary Care Provider Reason for Visit * Reason Onset Date Comments Precert In Process 06/01/2023 Prolia applyi vahe for assistance Encounter Details Date Type Department Care Team (Late st Contact Info) Description 06/01/2023 Telephone Rheumatology [facility] [address] [place], [place] [address] [address] Pedro Garnica MD [address] [place], [place] [address] [address] Precert In Process (Prolia applying for as... Allergies Active Allergy Reactions Criticality Noted Date Comments Amoxicillin 01/13/2005 Rash Salicylates 07/29/2010 Stomach upset Ciprofloxacin Other (Please comment) 05/14/2017 Dizziness Metronidazole Other (Please comment) 05/14/2017 Dizziness documented as of this encounter (statuses as of 09/06/2023) Medications Medication Sig Dispensed Refills Start Date [...] 0 Active Vitamin D (Ergocalciferol) 1.25 MG (29517 UT) Oral Capsule (Drisdol)Indicatio ns:Vitamin D deficiency [...] as of this encounter (statuses as of 09/06/2023) Active Problems Problem Noted Date Diagnosed Date [...] as of this encounter (statuses as of 09/06/2023) Resolved Problems Problem Noted Date Diagnosed Date Resolved Date Ovarian cyst 02/16/2009 03/26/2017 HTN, goal below 140/90 08/16/200503/20 Osteoporosis 05/17/2005 09/23/2019 Menopause 01/13/2005 08/30/2018 Overview: age 53 Dyslipidemia, goal to be determined 01/13/2005 03/20/2016 NO KNOWN PROBLEMS 05/14/2002 01/13/2005 documented as of this encounter (statuses as of 09/06/2023) Immunizations Name Administration Dates Next Due COVID-19 [...] Telephone Encounter - Mary Aparicio LPN - 09/06/2023 10:40 AM EST Please call and schedule this patient for an appointment with the [facility] Nurse clinic in for Prolia, per referral message auth obtained and pt has been approved for assistance to cover her oop. * Telephone Encounter - Yolis Sidhu OSA [...] name: PROLIA [facility] code(s): J0897 AUTH #: [id number] Valid auth start date: 06/05/2023 Valid auth end date: 08/12/2099 Location: [facility] # of Visits: 99 Billing Units Approved: LIFETIME Diagnosis Code(s): M81.0 Contacted patient: YES, APPLYING FOR FINANCIAL ASSISTANCE * Telephone Encounter - Lily Alejandre OSA - 06/05/2023 3:59 PM EDT Prior Auth ([facility]) ID: [id number] Drug/Service Name: PROLIA 60 MG/ML SYRINGE Patient: CAPRI HERRERA Date Requested: 06/05/2023 3:54:27 PM MemberID: [id number] : 1940 submitted authorization request please see [...] Care Team (Late st Contact Info) Description 10/10/2023 4:00 PM EST Office Visit Dermatology [facility] [address] [place] [phone] Moustapha Stevens PA-C [address] [place] [address] 11/26/2023 2:00 PM EDT Office Visit Family Practice [facility] [address] [place] [address] Yin Morales PA-C [address] [place] [phone] 12/14/2023 11:45 AM EDT Appointment OR [facility], Operating Room, [facility] 1st Floor [address] [place], [place] [phone] Magda Claudio, DO [address] [place], [place] [phone] 12/17/2023 3:00 PM EDT Office Visit Rheumatology [place] [address] [place] [address] Morgan Gresham CRNP [address] [place] [phone] Scheduled Procedures Name Priority Associated Diagnoses Date/Ti [...] D LEVEL ONCE IN A LIFETIME-USE SMARTSET# [id number] Completed 03/22/2023, 09/21/2021, 03/17/2021, Additional history exists [...] filedocumented as of this encounter Care Teams Sales Floor Team Member Relationship Specialty Start Date End Date Yin Morales PA-C [address] [place] [address] PCP - General Physician Social Sciences Lecturer 07/11/22 documented as of this encounter
--- OUTSIDE RECORDS SUMMARY | 2023-09-07 05:11 | External Medical Summary | Summary of Care ---
Author Name Unknown Organization [facility] Address [address] [facility] [address] Phone [phone] Care Team Providers Care Lens Coating Technician Name Role Phone Yin Morales PA-C Primary Care Provider Reason for Visit * Reason Onset Date Comments Precert In Process 06/01/2023 Prolia applyi vahe for assistance Encounter Details Date Type Department Care Team (Late st Contact Info) Description 06/01/2023 Telephone Rheumatology [facility] [address] [place], [place] [address] [address] Pedro Garnica MD [address] [place] [address] [address] Precert In Process (Prolia applying for [...] 0 Active Vitamin D (Ergocalciferol) 1.25 MG (69108 UT) Oral Capsule (Drisdol)Indicatio ns:Vitamin D deficiency [...] encounter Miscellaneous Notes * Telephone Encounter - Damari Sandoval OSA - 09/06/2023 2:01 PM EST LMOM for patient to call to schedule first available appointment with PT Rheum Nurse for Prolia. * Telephone Encounter - Mary Aparicio LPN - 09/06/2023 10:40 AM EST Please call and schedule this patient for an appointment with the Rheum Nurse clinic in for Prolia, per referral [...] 06/08/2023 1:15 PM EDT Drug name: PROLIA [facility] code(s): J0897 AUTH #: [id number] Valid auth start date: 06/05/2023 Valid auth end date: 08/12/2099 Location: [facility] # of Visits: 99 Billing Units Approved: LIFETIME Diagnosis Code(s): M81.0 Contacted patient: YES, APPLYING FOR FINANCIAL ASSISTANCE * Telephone Encounter - Lily Alejandre OSA - 06/05/2023 3:59 PM EDT Prior Auth ([facility]) ID: [id number] Drug/Service Name: PROLIA 60 MG/ML SYRINGE Patient: CAPRI HERRERA Date Requested: 06/05/2023 3:54:27 PM MemberID: [id number] : 1940 submitted authorization request please see [...] Upcoming Encounters Date Type Department Care Team ([facility] st Contact Info) Description 10/10/2023 4:00 PM EST Office Visit Dermatology [address] [phone] Moustapha Stevens PA-C [address] [place] [address] 11/26/2023 2:00 PM EDT Office Visit Family Practice [address] [phone] Yin Morales PA-C [address] [place] [address] 12/14/2023 11:45 AM EDT Appointment OR [facility], Operating Room, [facility] 1st Floor [address] [place] [address] Magda Claudio, DO [address] [place] [address] 12/17/2023 3:00 PM EDT Office Visit Rheumatology [facility] [address] [facility] [place], [place] [address] Morgan Gresham CRNP [address] [place] [address] Scheduled Procedures Name Priority Associated Diagnoses Date/Ti me COLONOSCOPY FLEXIBLE PROXIMAL DIAGNOSTIC Recall Colon cancer screening Health Maintenance Due Date Last Done Comments Albumin/Creatinine Ratio 1959 Depression Screening 09/24/2021 09/24/2020 COLONOSCOPY-EVERY 5 YRS AGES 18-100 07/03/2022 07/03/2017, 07/03/2017, 12/31/2006 COVID-19 Vaccine ( - 2022-24 season) 2023 06/09/2022, 10/31/2021, 11/15/2020, Additional history exists DXA Scan 01/21/2024 01/20/2022, 01/12, 03/13/2014, Additional history exists GFR 07/26/2024 07/26/2023, 03/13, 02/22/2023, Additional history exists DTaP,Tdap,and Td Vaccines (2 - Td or Tdap) 02/26/2028 02/25/2018, 03/09/2008 Pneumococcal Vaccine: 65+ Years Completed 03/20/2016, 02/19/2006 Zoster Vaccines Completed 01/16/2020, 09/13, 03/09/2010 VITAMIN D LEVEL ONCE IN A LIFETIME-USE SMARTSET# [id number] Completed 03/22/2023, 09/21/2021, 03/17/2021, Additional history exists [...] filedocumented as of this encounter Care Teams Lens Coating Technician Relationship Specialty Start Date End Date Yin Morales PA-C [address] [place], [place] [address] [address] PCP - General Physician Water Fabricator Operator 07/11/22 documented as of this encounter
[2023-09-07] MEDS: KETOROLAC TROMETHAMINE 15 MG/ML VIAL IV SCH ×2 (05:36→11:51)
[2023-09-07] MEDS: ceFAZolin 2000MG 2,000 MG/15 ML SYR IV SCH (05:36)
[2023-09-07 07:11] LABS: Hematocrit (blood only) 30.9 % (37.0-47.0); Hemoglobin 10.7 g/dl (12.0-16.0); Mean Corpuscular Hemoglobin 30.6 pg (25.0-34.0); Mean Corpuscular Hgb Conc 34.6 g/dL (32.0-36.0); Mean Corpuscular Volume 88.3 fL (80.0-100.0); Mean Platelet Volume 10.5 fL (9.4-12.4); Platelet Count 170 K/uL (130-400); RDW Coefficient of Variation 12.4 % (11.5-14.5); RDW Standard Deviation 39.6 fL (36.4-46.3); White Blood Count 17.97 K/ul (4.8-10.8)
[2023-09-07 07:33] LABS: BUN Creatinine Ratio 16.4 (10-20); Calcium 9.2 mg/dl (8.6-10.3); Creatinine Clr Calc Pharmacy 57.4 ml/min; Est GFR (African American) 88.9 ml/min; Est GFR (Non-African American) 76.7 ml/min; Potassium 3.8 mmol/L (3.5-5.1)
[2023-09-07] MEDS ORDERED: dexAMETHasone 10 MG in SYRINGE 0 ML IV SCH (08:00)
[2023-09-07] MEDS: ASCORBIC ACID 500 MG TAB PO SCH (08:19)
[2023-09-07] MEDS: ASPIRIN 81 MG ECTAB PO SCH (08:20)
[2023-09-07] MEDS: ACETAMINOPHEN 500 MG TAB PO SCH ×2 (08:21→13:26)
[2023-09-07] MEDS: DOCUSATE SODIUM 100 MG CAP PO SCH ×2 (08:22→08:28)
[2023-09-07] MEDS: MULTIVITAMIN TAB PO SCH ×2 (08:23→08:29)
[2023-09-07] MEDS: METOPROLOL TARTRATE 50 MG TAB PO SCH (08:23)
[2023-09-07] MEDS: oxyBUTYnin chloride 5 MG TAB PO SCH (08:24)
[2023-09-07] MEDS ORDERED: amLODIPine BESYLATE 5 MG TAB PO SCH (09:00)
[2023-09-07] MEDS ORDERED: ENALAPRIL MALEATE 10 MG TAB PO SCH (09:00)
[2023-09-07] MEDS ORDERED: POLYETHYLENE (MIRALAX) 17 GM PACK PO SCH (09:00)
--- NOTE | 2023-09-07 10:03 | Orthopedic Progress Note ---
Date of Service September 07, 2023 Assessment & Plan (1) Status post right knee replacement: Overall she is doing quite well today with good pain control to the right knee. She will work with physical therapy later this morning to work on ambulation and range of motion exercises. She is on aspirin for DVT prophylaxis. She can be discharged home later this morning pending physical therapy evaluation. She will follow-up with Dr. Barnett in 2 weeks for postoperative care. Subjective . Capri was seen and evaluated at bedside this morning resting comfortably in bed in no apparent distress. She notes that her pain is well-controlled to the right knee. She has been up and out of bed with no significant issues. She has yet to work with physical therapy yet this morning. She denies any other concerns today. Review of Systems All systems reviewed & are unremarkable except as noted in HPI & below. Physical Exam . On evaluation of the right knee, dressings are clean, dry, intact. Her leg is out in full extension. She has active plantarflexion dorsiflexion to the right ankle. +2 DP and PT pulses. Less than 2-second capillary refill. Normal se nsation. Neurovascular intact. Results & Data Results & Data Laboratory Results . Diagnostic Findings . Postoperative x-rays of the right knee show prosthesis to be in anatomical alignment with no signs of fracture complication or loosening. PG Care Time/CCT Total # of Minutes Spent Total Time Spent with Patient: Total time spent is greater than 50% in coordination of care (as documented) at patient's floor/unit and/or counseling patient: Coding Level of Care Code 93361 Post Operative Follow-Up Diagnoses Status post right knee replacement Z96.651
--- NOTE | 2023-09-07 11:41 | Discharge Summary ---
Date of Service September 07, 2023 Admission HPI (Per Admitting) . Patient is an 83-year-old female who presents specifically for surgical treatment of her right right knee. She got about 10-year history of increasing right knee pain discomfort describes gotten worse over time. She been through extensive conservative measures treated at [facility] with injections as well as oral medicines. This become less successful over time. Describes global pain. The more she is up a lot more it hurts. She limps more as the day goes on. She can get to the grocery store and that is about it before she is all plate out. She like to have her right knee replaced. Admission Exam (Per Admitting) . Physical examination was a pleasant middle-age female but looks in pretty good health. Examination of the right knee reveals patient ambulates independently. Good varus alignment to her knee. She is tender with medial joint line. Range of motion 5-1 15. No pain with hip motion. Negative straight leg raise. She is neurologically intact. Principal Diagnosis Same as "Discharge Diagnosis" noted below under Discharge Instructions. Discharge Exam . On evaluation of the right knee, dressings are clean, dry, intact. Her leg is out in full extension. She has active plantarflexion dorsiflexion to the right ankle. +2 DP and PT pulses. Less than 2-second capillary refill. Normal sensation. Neurovascular intact. Discharge Data Procedures Performed Operation Date: 09/06/23 12:30 Actual Procedures p Right Total Knee Arthroplasty(Right) - Barrera Barnett MD Ordered Studies 09/06/23 05:00 US - OR guided needle placemen Routine Hospital Course (1) Status post right knee replacement: On September 06, 2023 Capri arrived at [facility] and underwent a right total knee arthroplasty performed by Dr. Barnett with no complications. She had a spinal anesthetic. Postoperatively, she was started on aspirin for DVT prophylaxis and transferred to the general orthopedic floor in stable condition. Her hospital course was uneventful. On postoperative day #1, her vital signs were stable and her pain was well-controlled. She participated well with physical therapy working on ambulation and range of motion exercises. She was then discharged home in stable condition. She will follow-up in [address] Barnett for postoperative care. PG Care Time/CCT Total # of Minutes Spent Total Time Spent with Patient: Total time spent is greater than 50% in coordination of care (as documented) at patient's floor/unit and/or counseling patient: Discharge Plan Discharge Items Patient Disposition: Home - Home Health Services Reason For Visit: RIGHT KNEE REPLACEMENT Discharge Diagnosis: Right Knee REplacement Activity: Per Instructions section Weightbearing: Full weightbearing Non-emergency contact: Surgeon Call non-emergency contact if: you have any medication questions Follow-up/Referrals: Yin Morales PA-C [Primary Care Provider] - Diet: Regular Addtl Attending Provider Instructions: ACTIVITY RECOMMENDATIONS: Physical Therapy: * You will go to physical therapy three times each week for four to six weeks after your surgery in order to regain your knee range of motion and to retrain your knee to work properly. * It is just as important to make sure you are getting your knee perfectly straight as it is to regain your knee bend. * Taking a pain pill an hour before therapy can help you have a more productive and comfortable therapy session. Home Exercise: * You were shown a series of exercises (heel props, heel slides, etc.) in the hospital. Do these exercises three to four times each day including the exercises you were shown in physical therapy. Walking: * Get up and walk several times each day. For the first four weeks, try not to stand or walk for more than one hour at a time. If you do stand or walk for more than one hour, you will not hurt anything, but your knee and leg will likely swell. * As you feel comfortable, you may change from the walker or crutches to a cane and then to independent walking. MEDICATIONS: New Medicine: * You will likely be taking one or more of these medications: 1. Oxycodone - A quick and shorter-acting pain medication. Take one to two tablets every six hours to lessen your pain. 2. Aspirin - Thins your blood to lessen the chance of forming a blood clot. * The most common side effects of pain medicine and iron are nausea and constipation. If nausea or constipation is too much of a problem or if you have any questions about your new medicines or doses, call [facility] at [phone]. We will try to help you manage these issues. "VERY IMPORTANT TO READ AND REVIEW" Pain: * The immediate post-operative period after knee replacement surgery is often quite painful. * You are given a prescription for pain medicine. You should take it, as directed, when you need it, especially before physical therapy and before going to bed. Pain that interferes with sleep is very common and can last several months. * You will likely need pain medicine for the first four to six weeks. It will not stop all of the pain. The pain will lessen and as you feel better, you may change to milder pain medicine such as Tylenol. * The most common side effects of pain medicine are nausea and constipation, so don't take more than you need. SPECIAL CARE INSTRUCTIONS: TEDs/Elastic Stockings: * The white elastic stockings help limit swelling and prevent blood clots from forming in your legs. The more you wear them, the more they work. * Wear them for six weeks after knee replacement surgery and four weeks after partial knee replacement. Incision Site Care: * Remove dressing postoperative day 2 and then shower. Keep direct shower pressure off the incision site. * After showering, cover fartun with dry gauze and change daily or more frequently if the dressing is getting saturated with drainage. * Use the CARLA stockings to hold dressing in place. DO NOT apply tape on the skin. * May completely stop using bandage if wound is dry and no drainage * Fartun are removed between 2 and 3 weeks post-op. If your follow-up appointment is made before 2 weeks, please have your appointment re- scheduled. It is too early to remove the fartun. Prevention of Infection: * Take antibiotics one hour before any dental cleaning, dental work, urological procedure, gastrointestinal procedure or any invasive surgery in order to prevent your new joint from getting infected. * You may get the antibiotics from the doctor performing the procedure or you may call our office at [phone] before and we will call in a prescription to the pharmacy of your choice. Things to Watch For: * Drainage from the incision site that occurs more than one week after your surgery. * Severely increased knee/leg pain or swelling. * Increased redness at the incision site. * Fever above 102 degrees Fahrenheit. * Unusual chest pain or shortness of breath. * Unusual pain or burning with urination. Call [facility] at [phone] with any of the above problems or if you have any questions about your medicines or recovery. FOLLOW UP VISIT: Make an appointment to see your doctor for approximately two weeks after surgery for a progress check and staple removal by calling the office at [phone]. Pending Studies at Discharge: No Stand-Alone Forms: My [facility], Smoking Cessation Medications and DC Order Prescriptions: Continued oxycodone 5 mg tablet 5 - 10 mg PO Q6 PRN (Reason: pain) Qty: 40 0RF Rx Instructions: Take as needed for pain ondansetron 4 mg tablet,disintegrating 4 mg PO Q8 PRN (Reason: nausea) Qty: 20 1RF Rx Instructions: Take as needed for nausea ketorolac 10 mg tablet 10 mg PO Q8H 5 Days Qty: 15 0RF Rx Instructions: Take 3 times per day with food for 5 days to lessen pain and swelling. sennosides [Senokot] 8.6 mg tablet 8.6 mg PO BID 14 Days Qty: 28 0RF Rx Instructions: Take two times a day to prevent/treat constipation acetaminophen [Tylenol Extra Strength] 500 mg tablet 1,000 mg PO TID 30 Days Qty: 180 0RF Rx Instructions: Take 3 times per day to lessen pain. aspirin [Wilton Low Dose Aspirin] 81 mg tablet,delayed release (DR/EC) 81 mg PO BID 45 Days Qty: 90 0RF Rx Instructions: Take to prevent blood clots. atorvastatin 20 mg tablet 20 mg PO HS oxybutynin chloride 5 mg tablet 5 mg PO TID metoprolol tartrate 50 mg tablet 50 mg PO BID amlodipine-benazepril 5-20 mg capsule 1 cap PO QAM ergocalciferol (vitamin D2) 1,250 mcg (50,000 unit) capsule 1,250 mcg PO MONTHLY multivitamin [Daily Multi-Vitamin] Tablet 2 tab PO QPM Systane Complete 0.6 % drops 1 drp ophthalmic (eye) DAILY PRN (Reason: Dry Eye(S)) polyethylene glycol 3350 [Miralax] 17 gram/dose powder 17 g PO QAM senna 8.6 mg capsule 8.6 mg PO QPM Glucosamine Chondroitin 550-30-1 mg Capsule 1 cap PO BID Admission Data Admit Date/Time: 09/06/23 14:40 Attending Provider: Barrera Barnett Admit Provider: Barrera Barnett Primary Care Provider: Yin Morales Other Providers: [facility],Home Health Other Interventions: Discharge Summary Assessment (RN) Last Done: 09/07/23 10:48
[2023-09-07] MEDS ORDERED: ARTIFICIAL TEARS OP PRN (13:43)
--- OUTSIDE RECORDS SUMMARY | 2023-09-07 20:08 | External Medical Summary | Summary of Care ---
Author Name Unknown Organization [facility] Address [address] [place] [place] [address] Phone [phone] Care Team Providers Care Branch Rental Manager Name Role Phone Yin Morales PA-C Primary Care Provider Reason for Visit * Reason Onset Date Comments Precert In Process 06/01/2023 Prolia applyi vahe for assistance Encounter Details Date Type Department Care Team (Late st Contact Info) Description 06/01/2023 Telephone Rheumatology [facility] [address] [place], [place] [address] [address] Pedro Garnica MD [address] [place], [place] [address] [address] Precert In Process (Prolia applying for as... Allergies Active Allergy Reactions Criticality Noted Date Comments Amoxicillin 01/13/2005 Rash Salicylates 07/29/2010 Stomach upset Ciprofloxacin Other (Please comment) 05/14/2017 Dizziness Metronidazole Other (Please comment) 05/14/2017 Dizziness documented as of this encounter (statuses as of 09/07/2023) Medications Medication Sig Dispensed Refills Start Date [...] 0 Active Vitamin D (Ergocalciferol) 1.25 MG (30660 UT) Oral Capsule (Drisdol)Indicatio ns:Vitamin D deficiency [...] as of this encounter (statuses as of 09/07/2023) Active Problems Problem Noted Date Diagnosed Date [...] as of this encounter (statuses as of 09/07/2023) Resolved Problems Problem Noted Date Diagnosed Date Resolved Date Ovarian cyst 02/16/2009 03/26/2017 HTN, goal below 140/90 08/16/200503/20 Osteoporosis 05/17/2005 09/23/2019 Menopause 01/13/2005 08/30/2018 Overview: age 53 Dyslipidemia, goal to be determined 01/13/2005 03/20/2016 NO KNOWN PROBLEMS 05/14/2002 01/13/2005 documented as of this encounter (statuses as of 09/07/2023) Immunizations Name Administration Dates Next Due COVID-19 [...] encounter Miscellaneous Notes * Telephone Encounter - Zachary Espana OSA - 09/07/2023 9:41 AM EST I left message on pt vm to call me back to make appt * Telephone Encounter - Damari Sandoval OSA [...] 06/08/2023 1:15 PM EDT Drug name: [facility]IA [facility] code(s): J0897 AUTH #: [id number] Valid auth start date: 06/05/2023 Valid auth end date: 08/12/2099 Location: [facility] # of Visits: 99 Billing Units Approved: LIFETIME Diagnosis Code(s): M81.0 Contacted patient: YES, APPLYING FOR FINANCIAL ASSISTANCE * Telephone Encounter - Lily Alejandre OSA - 06/05/2023 3:59 PM EDT Prior Auth ([facility]) ID: [id number] Drug/Service Name: PROLIA 60 MG/ML SYRINGE Patient: CAPRI HERRERA Date Requested: 06/05/2023 3:54:27 PM MemberID: [id number] : 1940 submitted authorization request please see [...] Upcoming Encounters Date Type Department Care Team ([facility] Contact Info) Description 10/10/2023 4:00 PM EST Office Visit Dermatology [address] [phone] Moustapha Stevens PA-C [address] [place] [address] 11/26/2023 2:00 PM EDT Office Visit Family [address] [phone] Yin Morales PA-C [address] [place] [address] 12/14/2023 11:45 AM EDT Appointment OR [facility], Operating Room, [facility] 1st Floor [address] [place], [place] [phone] Magda Claudio, [address] [place] [address] 12/17/2023 3:00 PM EDT Office Visit Rheumatology [place] [phone] [facility] [address] Morgan Gresham CRNP [facility] [place] [address] Scheduled Procedures Name Priority Associated Diagnoses Date/Ti [...] D LEVEL ONCE IN A LIFETIME-USE SMARTSET# [id number] Completed 03/22/2023, 09/21/2021, 03/17/2021, Additional history exists [...] filedocumented as of this encounter Care Teams Branch Rental Manager Relationship Specialty Start Date End Date Yin Morales PA-C [address] [place], [place] [address] [address] PCP - General Physician Clothes Marker 07/11/22 documented as of this encounter
[2023-09-12] MEDS ORDERED: ERGOCALCIFEROL 50,000 UNITS 1250 MCG CAP PO SCH (09:00)
== END 2023-09-07 14:10 | disposition home health service (06) ==
LOC: ASU 10:53 → 3E 10:53